=== PATIENT | female | born 1955 | race Two or more races ===

== ENCOUNTER 2016-05-10 18:12 | Emergency (ER) | payer OTHER, MEDICARE ==
[~2016-05-10] VITALS: Ht 152.4 cm; Wt 62.5 kg
[~2016-05-10 18:12] MED LIST: AMLO5TAB2 PO; AMOX1TAB64 PO; ATOR10TA9 PO; CALC0.254 PO; CARV12.52 PO; CARV12.543 PO; CHOL100015 PO; CLON0.1T PO; CYCL5TAB PO; FURO40TA6 PO; FURO80TA3 PO; FURO80TA77 PO; HYDR-3138 PO; HYDR-3240 PO; INDA2.5T PO; INSU100I28 SC; INSU100I29 SC; INSU100V13 SQ; L. R1CAP PO; LEVEMIR PO; LISI-167 PO; LISI-170 PO; LOSA100T6 PO; METF-86 PO; METO10TA2 PO; METO10TA82 PO; METO25TA35 PO; METO50TA82 PO; METO5TAB2 PO; NORT25CA3 PO; OMEP10CA4 PO; OMEP40CA6 PO; OXYC5CAP4 PO; OXYGEN; PIOG15TA9 PO; PROM25SU34 RC; SERT100T5 PO; SERT25TA3 PO; SERT50TA5 PO; SODI650T PO; SUCR1TAB PO; VANC250C2 PO; ZOLP10TA5 PO
[2016-05-10] MEDS ORDERED: SODIUM CHLORIDE FLUSH 10ML SYR IVF ONE (18:30)
[2016-05-10] MEDS ORDERED: LISINOPRIL 20 MG TABLET ONE (18:36)
[2016-05-10] MEDS ORDERED: LISINOPRIL 20 MG TABLET PO ONE (19:00)
[2016-05-10 19:12] LABS: HEMOGLOBIN 9.6 g/dL (11.7-16.4)
[2016-05-10 19:20] LABS: ASPARTATE AMINO TRANSFERASE 9 U/L (15-37); BLOOD UREA NITROGEN 47 mg/dL (7-18)
[2016-05-10] MEDS ORDERED: LIDOCAINE 1%, 20ML ONE (20:48)
[2016-05-10] MEDS ORDERED: SODIUM BICARBONATE 4.2%, 5ML ONE (20:48)
[2016-05-10 21:40] VITALS: BP 166/60
[2016-05-10] MEDS ORDERED: OXYcodone/APAP 5/325MG TABLET ONE (21:51)
[2016-05-10] MEDS ORDERED: OXYcodone/APAP 5/325MG TABLET PO ONE (22:00)
== END 2016-05-10 22:31 | disposition home or self-care (01) ==
LOC: ED 21:30
DX: I50.1 Left ventricular failure, unspecified (principal)
CPT/HCPCS: 36415; 71010; 71020; 80053; 85025; 93005; 99285; J3490

== ENCOUNTER 2016-07-24 11:09 | Emergency (ER) | payer OTHER, MEDICARE ==
[~2016-07-24] VITALS: Ht 152.4 cm; Wt 55.0 kg
[~2016-07-24 11:09] MED LIST changes: +ACET325T14 PO; +CALC667C PO; +GUAI5SYR PO; +HYDR-3341 PO; +INSU100I18 SQ-INSULIN; -L. R1CAP PO; +LACT1CAP61 PO; +OXYC5TAB3 PO; +SPIR25TA PO
[2016-07-24 11:11] VITALS: BP 146/72
[2016-07-24] MEDS ORDERED: BACITRACIN ZINC OINT 500U/GM, 0.9 GM ONE (11:43)
== END 2016-07-24 12:10 | disposition home or self-care (01) ==
LOC: ED 12:04
DX: Z76.0 Encounter for issue of repeat prescription (principal); G89.29 Other chronic pain; E11.22 Type 2 diabetes mellitus with diabetic chronic kidney disease; I12.0 Hypertensive chronic kidney disease with stage 5 chronic kidney disease or end stage renal disease; N18.6 End stage renal disease; J18.9 Pneumonia, unspecified organism; F32.9 Major depressive disorder, single episode, unspecified; Z99.2 Dependence on renal dialysis
CPT/HCPCS: 99283

== ENCOUNTER 2016-07-25 22:00 | Emergency (ER) | payer OTHER, MEDICARE ==
[2016-07-27 15:07] LABS: ASPARTATE AMINO TRANSFERASE 19 U/L (15-37); BLOOD UREA NITROGEN 51 mg/dL (7-18)
== END 2016-07-26 03:52 | disposition home or self-care (01) ==
LOC: ED 22:00
DX: R06.00 Dyspnea, unspecified (principal); D64.9 Anemia, unspecified; R09.02 Hypoxemia; I12.0 Hypertensive chronic kidney disease with stage 5 chronic kidney disease or end stage renal disease; E11.22 Type 2 diabetes mellitus with diabetic chronic kidney disease; N18.6 End stage renal disease; K21.9 Gastro-esophageal reflux disease without esophagitis; Z87.891 Personal history of nicotine dependence; Z88.6 Allergy status to analgesic agent
CPT/HCPCS: 36415; 71010; 80053; 83880; 85025; 93005; 99285

== ENCOUNTER 2016-08-01 19:34 | Emergency (ER) | payer OTHER, MEDICARE ==
[~2016-08-01] VITALS: Ht 152.4 cm; Wt 58.6 kg
[2016-08-01 20:24] LABS: ASPARTATE AMINO TRANSFERASE 10 U/L (15-37); BLOOD UREA NITROGEN 57 mg/dL (7-18)
[2016-08-01 22:39] VITALS: BP 156/60
== END 2016-08-01 22:53 | disposition home or self-care (01) ==
LOC: ED 22:52
DX: R06.00 Dyspnea, unspecified (principal); R06.02 Shortness of breath; N19 Unspecified kidney failure; K21.9 Gastro-esophageal reflux disease without esophagitis; E11.9 Type 2 diabetes mellitus without complications; I11.0 Hypertensive heart disease with heart failure; Z87.01 Personal history of pneumonia (recurrent); J96.90 Respiratory failure, unspecified, unspecified whether with hypoxia or hypercapnia; Z99.2 Dependence on renal dialysis; Z90.49 Acquired absence of other specified parts of digestive tract; Z90.710 Acquired absence of both cervix and uterus; Z87.891 Personal history of nicotine dependence; Z88.5 Allergy status to narcotic agent
CPT/HCPCS: 36415; 71010; 80053; 85025; 93005; 99285

== ENCOUNTER 2016-11-06 15:37 | Emergency (ER) | payer OTHER, MEDICARE ==
[~2016-11-06] VITALS: Ht 152.4 cm; Wt 63.5 kg
[~2016-11-06 15:37] MED LIST changes: -HYDR-3138 PO; +HYDR-3237 PO; +METF-162 PO; -METF-86 PO; +OXYC5CAP2 PO; -OXYC5CAP4 PO; +PIOG15TA22 PO; -PIOG15TA9 PO
[2016-11-06 16:26] VITALS: BP 148/49
[2016-11-06] MEDS ORDERED: ALPR0.25 PO (16:26)
[2016-11-06] MEDS ORDERED: LISI-170 PO (16:26)
[2016-11-06] MEDS ORDERED: ONDA4TAB7 PO (16:26)
[2016-11-06] MEDS ORDERED: INSU100I28 SQ (16:26)
== END 2016-11-06 17:24 | disposition home or self-care (01) ==
LOC: ED 17:19
DX: R06.00 Dyspnea, unspecified (principal); I13.2 Hypertensive heart and chronic kidney disease with heart failure and with stage 5 chronic kidney disease, or end stage renal disease; E11.22 Type 2 diabetes mellitus with diabetic chronic kidney disease; N18.6 End stage renal disease; I50.40 Unspecified combined systolic (congestive) and diastolic (congestive) heart failure; K21.9 Gastro-esophageal reflux disease without esophagitis; Z99.2 Dependence on renal dialysis; Z90.49 Acquired absence of other specified parts of digestive tract; Z90.710 Acquired absence of both cervix and uterus; Z87.891 Personal history of nicotine dependence
CPT/HCPCS: 71020; 93005; 99284

== ENCOUNTER 2016-12-13 16:14 | Emergency (ER) | payer OTHER, MEDICARE ==
[~2016-12-13] VITALS: Ht 152.4 cm; Wt 66.5 kg
[~2016-12-13 16:14] MED LIST changes: +ALPR0.25 PO; +INSU100I28 SQ; +ONDA4TAB7 PO
[2016-12-13] MEDS ORDERED: ONDANSETRON ODT 4 MG PO ONE (16:30)
[2016-12-13] MEDS ORDERED: ONDANSETRON ODT 4 MG ONE (16:36)
[2016-12-13 17:39] LABS: HEMATOCRIT 35.1 % (34.6-47.8); HEMOGLOBIN 11.8 g/dL (11.7-16.4); WHITE BLOOD COUNT 7.2 x10^3/uL (3.4-10)
[2016-12-13] MEDS ORDERED: ONDANSETRON 2MG/ML, 2ML ONE (17:41)
[2016-12-13] MEDS ORDERED: HYDROmorphone 1 MG/ML, 1ML ONE ×2 (17:41→17:44)
[2016-12-13 17:54] LABS: BLOOD UREA NITROGEN 37 mg/dL (7-18)
[2016-12-13 17:58] LABS: ASPARTATE AMINO TRANSFERASE 16 U/L (15-37)
[2016-12-13] MEDS ORDERED: SODIUM CHLORIDE FLUSH 10ML SYR IVF ONE (18:00)
[2016-12-13] MEDS ORDERED: HYDROmorphone 1 MG/ML, 1ML IVPush PRN (18:00)
[2016-12-13] MEDS ORDERED: ONDANSETRON 2MG/ML, 2ML IVPush ONE (18:00)
[2016-12-13 19:23] VITALS: BP 157/62
== END 2016-12-13 19:26 | disposition home or self-care (01) ==
LOC: ED 17:52
DX: S39.012A Strain of muscle, fascia and tendon of lower back, initial encounter (principal); I10 Essential (primary) hypertension; E11.9 Type 2 diabetes mellitus without complications; K21.9 Gastro-esophageal reflux disease without esophagitis; Z90.49 Acquired absence of other specified parts of digestive tract; Z88.6 Allergy status to analgesic agent; Z90.710 Acquired absence of both cervix and uterus; X58.XXXA Exposure to other specified factors, initial encounter; Y93.89 Activity, other specified; Y99.8 Other external cause status; Y92.89 Other specified places as the place of occurrence of the external cause
CPT/HCPCS: 36415; 72110; 74176; 80053; 83735; 85025; 96374; 96375; 99285; J1170; J2405; Q0162

== ENCOUNTER 2017-07-01 09:17 | Inpatient (IN) | payer OTHER, MEDICARE ==
[~2017-07-01] VITALS: Ht 152.4 cm; Wt 91.0 kg
[2017-07-01 09:52] LABS: BASOPHILS # (AUTO) 0.01 x10^3/uL (0-0.1); BASOPHILS % (AUTO) 0 % (0-1); EOSINOPHILS % (AUTO) 0 % (1-7); LYMPHOCYTES # (AUTO) 0.79 x10^3/uL (1-3.4); LYMPHOCYTES % (AUTO) 12 % (22-44); MD NO; MEAN CORPUSCULAR HEMOGLOBIN 30.9 pg (27.0-34.8); MEAN CORPUSCULAR HGB CONC 33.1 g/dL (32.4-35.8); MEAN CORPUSCULAR VOLUME 93.3 fL (80-100); MONOCYTES # (AUTO) 0.13 x10^3/uL (0.2-0.8); MONOCYTES % (AUTO) 2 % (2-9); NEUTROPHILS # (AUTO) 5.86 x10^3/uL (1.8-6.8); NEUTROPHILS % (AUTO) 86 % (42-75); PLATELET COUNT 260 x10^3/uL (130-400); RED BLOOD COUNT 4.14 x10^6/uL (3.82-5.3); RED CELL DISTRIBUTION WIDTH 14.3 % (9.6-15.2)
[2017-07-01 10:04] LABS: ALBUMIN 4.3 g/dL (3.4-5.0); ANION GAP 20 mmol/L (5-15); CHLORIDE 95 mmol/L (98-107)
[2017-07-01 10:08] LABS: ALANINE AMINOTRANSFERASE 18 U/L (12-78); ALKALINE PHOSPHATASE 115 U/L (45-117); BILIRUBIN,TOTAL 0.7 mg/dL (0.2-1.0); TOTAL PROTEIN 9.1 g/dL (6.4-8.2)
[2017-07-01] MEDS ORDERED: LORazepam 2 MG/ML, 1ML ONE (11:12)
[2017-07-01] MEDS ORDERED: LORazepam 2 MG/ML, 1ML IVPush ONE ×2 (11:30→15:00)
[2017-07-01] MEDS ORDERED: ONDANSETRON ODT 4 MG PO PRN (12:30)
[2017-07-01] MEDS: LISINOPRIL 20 MG TABLET PO SCH (12:30)
[2017-07-01] MEDS ORDERED: ONDANSETRON 2MG/ML, 2ML IVPush PRN (12:30)
[2017-07-01] MEDS: AMLODIPINE 5 MG TABLET PO SCH (12:30)
[2017-07-01] MEDS ORDERED: POLYETHYLENE GLYCOL 17 GM PACKET PO PRN (12:30)
[2017-07-01] MEDS: HEPARIN 5,000 UNITS/ML, 1ML SQ SCH ×2 (12:30→22:03)
[2017-07-01 12:40] LABS: FREE T4 (FREE THYROXINE) 0.99 ng/dL (0.76-1.46)
[2017-07-01 16:26] VITALS: BP 181/67
[2017-07-01] MEDS: CALCIUM ACETATE 667 MG CAPSULE PO SCH (17:00)
[2017-07-01] MEDS: CARVEDILOL 12.5 MG TABLET PO SCH (17:16)
[2017-07-01 18:29] VITALS: BP 201/82
[2017-07-01] MEDS ORDERED: ZIPRASIDONE 20 MG INJ IM ONE (20:00)
[2017-07-01 21:15] VITALS: BP 216/75
[2017-07-01] MEDS: LABETALOL 5MG/ML, 20ML IVPush PRN (22:03)
[2017-07-01 22:10] VITALS: BP 205/77
[2017-07-01] MEDS ORDERED: hydrALAzine 20 MG/ML, 1ML IV ONE (23:00)
[2017-07-02] VITALS (10 sets, daily range): BP systolic 138–218; BP diastolic 49–87
[2017-07-02] MEDS ORDERED: hydrALAzine 20 MG/ML, 1ML IV ONE
[2017-07-02] MEDS: HEPARIN 5,000 UNITS/ML, 1ML SQ SCH ×2 (05:26→16:21)
[2017-07-02] MEDS: CARVEDILOL 12.5 MG TABLET PO SCH ×2 (05:27→17:39)
[2017-07-02 05:30] LABS: BASOPHILS # (AUTO) 0.02 x10^3/uL (0-0.1); BASOPHILS % (AUTO) 0 % (0-1); EOSINOPHILS % (AUTO) 0 % (1-7); LYMPHOCYTES # (AUTO) 0.79 x10^3/uL (1-3.4); LYMPHOCYTES % (AUTO) 8 % (22-44); MD NO; MEAN CORPUSCULAR HEMOGLOBIN 31.2 pg (27.0-34.8); MEAN CORPUSCULAR HGB CONC 33.7 g/dL (32.4-35.8); MEAN CORPUSCULAR VOLUME 92.4 fL (80-100); MEAN PLATELET VOLUME 8.7 fL (7.4-10.4); MONOCYTES # (AUTO) 0.74 x10^3/uL (0.2-0.8); MONOCYTES % (AUTO) 7 % (2-9); NEUTROPHILS % (AUTO) 85 % (42-75); PLATELET COUNT 218 x10^3/uL (130-400); RED BLOOD COUNT 3.68 x10^6/uL (3.82-5.3)
[2017-07-02 05:35] LABS: ALBUMIN 3.9 g/dL (3.4-5.0); ANION GAP 17 mmol/L (5-15); CALCIUM 8.5 mg/dL (8.5-10.1); CHLORIDE 100 mmol/L (98-107)
[2017-07-02 05:48] LABS: ALANINE AMINOTRANSFERASE 15 U/L (12-78); ALKALINE PHOSPHATASE 85 U/L (45-117); BILIRUBIN,TOTAL 1.2 mg/dL (0.2-1.0); CREATININE 9.25 mg/dL (0.55-1.02); TOTAL PROTEIN 7.8 g/dL (6.4-8.2)
[2017-07-02] MEDS: hydrALAzine 20 MG/ML, 1ML IV SCH ×7 (07:00→21:54)
[2017-07-02] MEDS ORDERED: ZIPRASIDONE 20 MG INJ IM ONE ×2 (07:29→08:00)
[2017-07-02] MEDS: LABETALOL 5MG/ML, 20ML IVPush PRN (07:54)
[2017-07-02] MEDS: CALCIUM ACETATE 667 MG CAPSULE PO SCH ×3 (08:00→17:00)
[2017-07-02] MEDS: morphine SULFATE 10 MG/ML, 1ML IVPush ONE (08:00)
[2017-07-02] MEDS ORDERED: MORPHINE SULFATE 4 MG/ML, 1ML ONE ×3 (08:07→12:39)
[2017-07-02] MEDS: AMLODIPINE 5 MG TABLET PO SCH (09:00)
[2017-07-02] MEDS ORDERED: SERTRALINE 100MG TABLET PO SCH (09:00)
[2017-07-02] MEDS: SENNA/DOCUSATE TABLET PO SCH (09:00)
[2017-07-02] MEDS: LISINOPRIL 20 MG TABLET PO SCH (09:00)
[2017-07-02] MEDS ORDERED: HALOPERIDOL 5 MG/ML IM ONE (10:00)
[2017-07-02] MEDS ORDERED: HALOPERIDOL 5 MG/ML ONE (10:01)
[2017-07-02] MEDS ORDERED: MORPHINE SULFATE 4 MG/ML, 1ML IVPush ONE (13:00)
[2017-07-02] MEDS: MORPHINE SULFATE 4 MG/ML, 1ML IVPush PRN ×2 (16:21→21:22)
[2017-07-03] VITALS (8 sets, daily range): BP systolic 114–182; BP diastolic 63–75
[2017-07-03] MEDS: HEPARIN 5,000 UNITS/ML, 1ML SQ SCH ×3 (00:48→16:00)
[2017-07-03] MEDS: hydrALAzine 20 MG/ML, 1ML IV SCH ×6 (02:17→22:00)
[2017-07-03 05:34] LABS: BASOPHILS # (AUTO) 0.02 x10^3/uL (0-0.1); BASOPHILS % (AUTO) 0 % (0-1); EOSINOPHILS % (AUTO) 0 % (1-7); LYMPHOCYTES # (AUTO) 0.87 x10^3/uL (1-3.4); LYMPHOCYTES % (AUTO) 8 % (22-44); MD NO; MEAN CORPUSCULAR HEMOGLOBIN 31.4 pg (27.0-34.8); MEAN CORPUSCULAR HGB CONC 33.1 g/dL (32.4-35.8); MEAN CORPUSCULAR VOLUME 94.9 fL (80-100); MEAN PLATELET VOLUME 9.1 fL (7.4-10.4); MONOCYTES # (AUTO) 0.86 x10^3/uL (0.2-0.8); MONOCYTES % (AUTO) 8 % (2-9); NEUTROPHILS # (AUTO) 9.64 x10^3/uL (1.8-6.8); NEUTROPHILS % (AUTO) 85 % (42-75); PLATELET COUNT 238 x10^3/uL (130-400); RED BLOOD COUNT 3.89 x10^6/uL (3.82-5.3); RED CELL DISTRIBUTION WIDTH 14.4 % (9.6-15.2)
[2017-07-03 05:43] LABS: ALBUMIN 4.1 g/dL (3.4-5.0); ANION GAP 16 mmol/L (5-15); CALCIUM 8.9 mg/dL (8.5-10.1); CHLORIDE 100 mmol/L (98-107)
[2017-07-03 05:47] LABS: % IRON SATURATION 23 % (20-55); ALANINE AMINOTRANSFERASE 24 U/L (12-78); ALKALINE PHOSPHATASE 89 U/L (45-117); IRON LEVEL 52 mcg/dL (50-170); TOTAL IRON BINDING CAPACITY 230 mcg/dL (250-450); TOTAL PROTEIN 8.5 g/dL (6.4-8.2)
[2017-07-03] MEDS: CARVEDILOL 12.5 MG TABLET PO SCH ×2 (05:56→17:44)
[2017-07-03] MEDS: CALCIUM ACETATE 667 MG CAPSULE PO SCH ×3 (08:00→17:00)
[2017-07-03] MEDS: MORPHINE SULFATE 4 MG/ML, 1ML IVPush PRN ×2 (08:59→13:21)
[2017-07-03] MEDS: AMLODIPINE 5 MG TABLET PO SCH (09:00)
[2017-07-03] MEDS: SENNA/DOCUSATE TABLET PO SCH (09:00)
[2017-07-03] MEDS: LISINOPRIL 20 MG TABLET PO SCH (09:00)
[2017-07-04] VITALS (7 sets, daily range): BP systolic 110–164; BP diastolic 62–73
[2017-07-04] MEDS: HEPARIN 5,000 UNITS/ML, 1ML SQ SCH ×3 (00:29→19:00)
[2017-07-04] MEDS: hydrALAzine 20 MG/ML, 1ML IV SCH ×6 (02:00→22:00)
[2017-07-04] MEDS: CARVEDILOL 12.5 MG TABLET PO SCH ×2 (05:22→22:24)
[2017-07-04] MEDS: CALCIUM ACETATE 667 MG CAPSULE PO SCH ×3 (08:00→17:00)
[2017-07-04] MEDS: AMLODIPINE 5 MG TABLET PO SCH (08:55)
[2017-07-04] MEDS: LISINOPRIL 20 MG TABLET PO SCH (08:56)
[2017-07-04] MEDS: SENNA/DOCUSATE TABLET PO SCH (08:56)
[2017-07-04 11:56] LABS: BASOPHILS # (AUTO) 0.01 x10^3/uL (0-0.1); BASOPHILS % (AUTO) 0 % (0-1); EOSINOPHILS % (AUTO) 0 % (1-7); LYMPHOCYTES # (AUTO) 1.13 x10^3/uL (1-3.4); LYMPHOCYTES % (AUTO) 10 % (22-44); MD NO; MEAN CORPUSCULAR HEMOGLOBIN 30.2 pg (27.0-34.8); MEAN CORPUSCULAR HGB CONC 32.2 g/dL (32.4-35.8); MEAN CORPUSCULAR VOLUME 93.9 fL (80-100); MONOCYTES # (AUTO) 0.87 x10^3/uL (0.2-0.8); MONOCYTES % (AUTO) 8 % (2-9); NEUTROPHILS # (AUTO) 9.38 x10^3/uL (1.8-6.8); NEUTROPHILS % (AUTO) 82 % (42-75); PLATELET COUNT 198 x10^3/uL (130-400); RED BLOOD COUNT 3.96 x10^6/uL (3.82-5.3); RED CELL DISTRIBUTION WIDTH 14.1 % (9.6-15.2)
[2017-07-04 12:09] LABS: ALANINE AMINOTRANSFERASE 28 U/L (12-78); ANION GAP 13 mmol/L (5-15); CALCIUM 8.7 mg/dL (8.5-10.1); CHLORIDE 95 mmol/L (98-107)
[2017-07-04 12:12] LABS: ALKALINE PHOSPHATASE 97 U/L (45-117); BILIRUBIN,TOTAL 1.1 mg/dL (0.2-1.0); CREATININE 5.07 mg/dL (0.55-1.02); TOTAL PROTEIN 8.2 g/dL (6.4-8.2)
[2017-07-04] MEDS: INSULIN LISPRO 100 UNITS/ML, PEN SQ-INSULIN SCH (21:00)
[2017-07-05 01:00] VITALS: BP 118/72
[2017-07-05] MEDS: hydrALAzine 20 MG/ML, 1ML IV SCH ×6 (02:00→20:18)
[2017-07-05] MEDS: HEPARIN 5,000 UNITS/ML, 1ML SQ SCH ×3 (02:50→20:27)
[2017-07-05 06:18] VITALS: BP 147/75
[2017-07-05] MEDS: CARVEDILOL 12.5 MG TABLET PO SCH ×2 (06:25→17:13)
[2017-07-05] MEDS: INSULIN LISPRO 100 UNITS/ML, PEN SQ-INSULIN SCH ×4 (07:00→20:27)
[2017-07-05 07:47] LABS: BASOPHILS # (AUTO) 0.03 x10^3/uL (0-0.1); BASOPHILS % (AUTO) 0 % (0-1); EOSINOPHILS # (AUTO) 0.07 x10^3/uL (0-0.4); EOSINOPHILS % (AUTO) 1 % (1-7); LYMPHOCYTES # (AUTO) 1.28 x10^3/uL (1-3.4); LYMPHOCYTES % (AUTO) 13 % (22-44); MD NO; MEAN CORPUSCULAR HEMOGLOBIN 31.3 pg (27.0-34.8); MEAN CORPUSCULAR HGB CONC 33.4 g/dL (32.4-35.8); MEAN CORPUSCULAR VOLUME 93.6 fL (80-100); MEAN PLATELET VOLUME 9.2 fL (7.4-10.4); MONOCYTES # (AUTO) 0.95 x10^3/uL (0.2-0.8); MONOCYTES % (AUTO) 10 % (2-9); NEUTROPHILS # (AUTO) 7.44 x10^3/uL (1.8-6.8); NEUTROPHILS % (AUTO) 76 % (42-75); PLATELET COUNT 168 x10^3/uL (130-400); RED BLOOD COUNT 3.51 x10^6/uL (3.82-5.3); RED CELL DISTRIBUTION WIDTH 13.9 % (9.6-15.2)
[2017-07-05 08:00] LABS: ALANINE AMINOTRANSFERASE 25 U/L (12-78); ALBUMIN 3.3 g/dL (3.4-5.0); ANION GAP 9 mmol/L (5-15); CALCIUM 8.5 mg/dL (8.5-10.1); CHLORIDE 97 mmol/L (98-107); CREATININE 3.64 mg/dL (0.55-1.02)
[2017-07-05 08:02] LABS: ALKALINE PHOSPHATASE 111 U/L (45-117); BILIRUBIN,TOTAL 0.7 mg/dL (0.2-1.0); TOTAL PROTEIN 7.1 g/dL (6.4-8.2)
[2017-07-05 08:49] VITALS: BP 143/72
[2017-07-05] MEDS: SENNA/DOCUSATE TABLET PO SCH (09:00)
[2017-07-05] MEDS: LISINOPRIL 20 MG TABLET PO SCH (09:45)
[2017-07-05] MEDS: AMLODIPINE 5 MG TABLET PO SCH (09:45)
[2017-07-05] MEDS: CALCIUM ACETATE 667 MG CAPSULE PO SCH ×3 (09:46→17:13)
[2017-07-05 12:00] VITALS: BP 103/48
[2017-07-05 13:20] VITALS: BP 108/56
[2017-07-05 20:03] VITALS: BP 131/67
[2017-07-06 01:14] VITALS: BP 130/66
[2017-07-06] MEDS: hydrALAzine 20 MG/ML, 1ML IV SCH ×7 (02:00→22:00)
[2017-07-06] MEDS: HEPARIN 5,000 UNITS/ML, 1ML SQ SCH ×3 (04:00→20:46)
[2017-07-06] MEDS: CARVEDILOL 12.5 MG TABLET PO SCH ×2 (05:20→17:25)
[2017-07-06 05:46] LABS: ALBUMIN 3.2 g/dL (3.4-5.0); ANION GAP 11 mmol/L (5-15); CHLORIDE 95 mmol/L (98-107); CREATININE 6.02 mg/dL (0.55-1.02)
[2017-07-06 08:31] VITALS: BP 115/64
[2017-07-06] MEDS: SENNA/DOCUSATE TABLET PO SCH (08:32)
[2017-07-06] MEDS: CALCIUM ACETATE 667 MG CAPSULE PO SCH ×3 (08:33→17:23)
[2017-07-06] MEDS: INSULIN LISPRO 100 UNITS/ML, PEN SQ-INSULIN SCH ×4 (08:34→20:52)
[2017-07-06] MEDS: LISINOPRIL 20 MG TABLET PO SCH (08:40)
[2017-07-06] MEDS: AMLODIPINE 5 MG TABLET PO SCH (08:40)
[2017-07-06 14:00] VITALS: BP 152/69
[2017-07-06 17:29] VITALS: BP 122/65
[2017-07-06 20:00] VITALS: BP 144/85
[2017-07-06 22:07] VITALS: BP 121/64
[2017-07-07] VITALS (8 sets, daily range): BP systolic 110–165; BP diastolic 61–77
[2017-07-07] MEDS: hydrALAzine 20 MG/ML, 1ML IV SCH ×6 (02:00→21:34)
[2017-07-07] MEDS: HEPARIN 5,000 UNITS/ML, 1ML SQ SCH ×3 (03:57→21:32)
[2017-07-07] MEDS: CARVEDILOL 12.5 MG TABLET PO SCH ×2 (05:37→17:33)
[2017-07-07] MEDS: INSULIN LISPRO 100 UNITS/ML, PEN SQ-INSULIN SCH ×4 (07:00→21:32)
[2017-07-07] MEDS: CALCIUM ACETATE 667 MG CAPSULE PO SCH ×3 (08:11→17:32)
[2017-07-07] MEDS: LISINOPRIL 20 MG TABLET PO SCH (08:11)
[2017-07-07] MEDS: SENNA/DOCUSATE TABLET PO SCH (08:12)
[2017-07-07] MEDS: AMLODIPINE 5 MG TABLET PO SCH (08:12)
[2017-07-07] MEDS ORDERED: CALCITRIOL 0.25 MCG CAPSULE PO SCH (09:00)
[2017-07-08 00:55] VITALS: BP 137/60
[2017-07-08] MEDS: hydrALAzine 20 MG/ML, 1ML IV SCH ×3 (01:52→12:44)
[2017-07-08] MEDS: HEPARIN 5,000 UNITS/ML, 1ML SQ SCH ×2 (05:18→13:30)
[2017-07-08] MEDS: CARVEDILOL 12.5 MG TABLET PO SCH (05:19)
[2017-07-08 05:20] VITALS: BP 153/53
[2017-07-08] MEDS ORDERED: CALC0.25 PO (06:25)
[2017-07-08] MEDS: CALCIUM ACETATE 667 MG CAPSULE PO SCH ×2 (07:54→12:45)
[2017-07-08] MEDS: INSULIN LISPRO 100 UNITS/ML, PEN SQ-INSULIN SCH ×2 (07:54→11:00)
[2017-07-08] MEDS: SENNA/DOCUSATE TABLET PO SCH (09:00)
[2017-07-08] MEDS ORDERED: ERGOCALCIFEROL 50,000 UNIT CAPSULE PO SCH (10:30)
[2017-07-08 12:38] VITALS: BP 146/69
[2017-07-08] MEDS: AMLODIPINE 5 MG TABLET PO SCH (12:45)
[2017-07-08] MEDS: LISINOPRIL 20 MG TABLET PO SCH (12:45)
== END 2017-07-08 13:30 | DRG 70 ==
LOC: ED 10:11 → EDIP 10:44 → 3NE 11:38 → 4EST 20:45
PROVIDERS: ADMIT Hospitalist; ATTEND Hospitalist
PROC: 5A1D70Z Performance of Urinary Filtration, Intermittent, Less than 6 Hours Per Day (ICD-10-PCS; principal; 2017-07-01)
PROC: 5A1D70Z Performance of Urinary Filtration, Intermittent, Less than 6 Hours Per Day (ICD-10-PCS; 2017-07-02)
PROC: 5A1D70Z Performance of Urinary Filtration, Intermittent, Less than 6 Hours Per Day (ICD-10-PCS; 2017-07-03)
PROC: 5A1D70Z Performance of Urinary Filtration, Intermittent, Less than 6 Hours Per Day (ICD-10-PCS; 2017-07-04)
PROC: 5A1D70Z Performance of Urinary Filtration, Intermittent, Less than 6 Hours Per Day (ICD-10-PCS; 2017-07-06)
PROC: 5A1D70Z Performance of Urinary Filtration, Intermittent, Less than 6 Hours Per Day (ICD-10-PCS; 2017-07-08)
DX: G93.41 Metabolic encephalopathy (principal); J18.9 Pneumonia, unspecified organism; I13.2 Hypertensive heart and chronic kidney disease with heart failure and with stage 5 chronic kidney disease, or end stage renal disease; Z99.11 Dependence on respirator [ventilator] status; J96.10 Chronic respiratory failure, unspecified whether with hypoxia or hypercapnia; E46 Unspecified protein-calorie malnutrition; N18.6 End stage renal disease; E87.1 Hypo-osmolality and hyponatremia; I50.32 Chronic diastolic (congestive) heart failure; G93.49 Other encephalopathy; D63.1 Anemia in chronic kidney disease; E11.22 Type 2 diabetes mellitus with diabetic chronic kidney disease; E11.43 Type 2 diabetes mellitus with diabetic autonomic (poly)neuropathy; E55.9 Vitamin D deficiency, unspecified; F32.9 Major depressive disorder, single episode, unspecified; I34.0 Nonrheumatic mitral (valve) insufficiency; K21.9 Gastro-esophageal reflux disease without esophagitis; K31.84 Gastroparesis; N20.0 Calculus of kidney; N25.0 Renal osteodystrophy; Z78.1 Physical restraint status; Z82.49 Family history of ischemic heart disease and other diseases of the circulatory system; Z90.710 Acquired absence of both cervix and uterus; Z83.3 Family history of diabetes mellitus; Z99.2 Dependence on renal dialysis
CPT/HCPCS: 36415; 70450; 71045; 74176; 80048; 80053; 80307; 82040; 82140; 82306; 82728; 82962; 83540; 83550; 83690; 83735; 83970; 84100; 84439; 84443; 85025; 86704; 86706; 87040; 87340; 93005; 96372; 96374; 96376; J1644; J3486; J0360; J1630; J1815; J2060; J2270

== ENCOUNTER 2017-07-30 15:49 | Inpatient (IN) | payer OTHER, MEDICARE ==
[~2017-07-30] VITALS: Ht 152.4 cm; Wt 71.3 kg
[~2017-07-30 15:49] MED LIST changes: +CALC0.25 PO
[2017-07-30] MEDS ORDERED: SODIUM CHLORIDE FLUSH 10ML SYR IVF ONE (16:00)
[2017-07-30 16:38] LABS: BASOPHILS # (AUTO) 0.01 x10^3/uL (0-0.1); BASOPHILS % (AUTO) 0 % (0-1); EOSINOPHILS % (AUTO) 0 % (1-7); LYMPHOCYTES # (AUTO) 0.59 x10^3/uL (1-3.4); LYMPHOCYTES % (AUTO) 9 % (22-44); MD NO; MEAN CORPUSCULAR HEMOGLOBIN 30.8 pg (27.0-34.8); MEAN CORPUSCULAR HGB CONC 32.2 g/dL (32.4-35.8); MEAN CORPUSCULAR VOLUME 95.7 fL (80-100); MEAN PLATELET VOLUME 8.8 fL (7.4-10.4); MONOCYTES # (AUTO) 0.29 x10^3/uL (0.2-0.8); MONOCYTES % (AUTO) 5 % (2-9); NEUTROPHILS # (AUTO) 5.51 x10^3/uL (1.8-6.8); NEUTROPHILS % (AUTO) 86 % (42-75); PLATELET COUNT 250 x10^3/uL (130-400); RED BLOOD COUNT 4.04 x10^6/uL (3.82-5.3); RED CELL DISTRIBUTION WIDTH 15.6 % (9.6-15.2)
[2017-07-30 16:47] LABS: INTERNATIONAL NORMALIZED RATIO 0.99 (0.93-1.1); PROTHROMBIN TIME 10.2 Seconds (9.6-11.5)
[2017-07-30 16:50] LABS: ALBUMIN 3.8 g/dL (3.4-5.0); ANION GAP 11 mmol/L (5-15); CALCIUM 8.5 mg/dL (8.5-10.1); CHLORIDE 96 mmol/L (98-107); SALICYLATE LEVEL < 1.7 mg/dL (2.8-20.0)
[2017-07-30 16:55] LABS: ACETAMINOPHEN < 2 mcg/mL (10-30); ALANINE AMINOTRANSFERASE 23 U/L (12-78); ALKALINE PHOSPHATASE 136 U/L (45-117); BILIRUBIN,TOTAL 1.1 mg/dL (0.2-1.0); CREATININE 6.87 mg/dL (0.55-1.02); TOTAL PROTEIN 8.1 g/dL (6.4-8.2); TROPONIN I 0.017 ng/mL (0.000-0.045)
[2017-07-30 17:02] LABS: MICROSCOPIC INDICATED
[2017-07-30 17:08] LABS: AMPHETAMINE SCREEN, URINE Negative (Negative); BARBITURATE SCREEN, URINE Negative (Negative); BENZODIAZEPINE SCREEN, URINE Negative (Negative); CANNABINOID SCREEN, URINE Negative (Negative); COCAINE SCREEN, URINE Negative (Negative); METHADONE SCREEN, URINE Negative (Negative); OPIATE SCREEN, URINE Negative (Negative)
[2017-07-30 17:09] LABS: CULTURE INDICATED? NO
[2017-07-30] MEDS ORDERED: LORazepam 2 MG/ML, 1ML ONE (17:44)
[2017-07-30] MEDS ORDERED: MIDAZOLAM 1 MG/ML, 2ML ONE (17:57)
[2017-07-30] MEDS ORDERED: MIDAZOLAM 1 MG/ML, 2ML IVPush ONE (18:00)
[2017-07-30] MEDS ORDERED: POLYETHYLENE GLYCOL 17 GM PACKET PO PRN (18:30)
[2017-07-30] MEDS ORDERED: GUAIFENESIN/DM 200-20MG, 10ML UDC PO PRN (18:30)
[2017-07-30] MEDS ORDERED: LABETALOL 5MG/ML, 20ML IVPush PRN ×2 (18:30)
[2017-07-30] MEDS ORDERED: ONDANSETRON 2MG/ML, 2ML IVPush PRN (18:30)
[2017-07-30] MEDS ORDERED: METO10TA2 PO (18:48)
[2017-07-30] MEDS ORDERED: HYDR-3342 PO (18:48)
[2017-07-30] MEDS ORDERED: BACL20TA PO (18:48)
[2017-07-30 18:49] LABS: FREE T4 (FREE THYROXINE) 1.17 ng/dL (0.76-1.46); THYROID STIMULATING HORMONE 1.59 mIU/L (0.358-3.740)
[2017-07-30] MEDS ORDERED: LORazepam 2 MG/ML, 1ML IVPush ONE (19:30)
[2017-07-30 19:54] VITALS: BP 165/77
[2017-07-30] MEDS: HEPARIN 5,000 UNITS/ML, 1ML SQ SCH (20:57)
[2017-07-30] MEDS: FAMOTIDINE 20 MG/2 ML IVPush SCH (20:57)
[2017-07-30] MEDS: INSULIN LISPRO 100 UNITS/ML, PEN SQ-INSULIN SCH (20:57)
[2017-07-31 00:33] VITALS: BP 159/86
[2017-07-31] MEDS: morphine SULFATE 10 MG/ML, 1ML IVPush PRN ×4 (01:43→17:09)
[2017-07-31] MEDS ORDERED: LORazepam 2 MG/ML, 1ML IVPush ONE (02:30)
[2017-07-31] MEDS: HEPARIN 5,000 UNITS/ML, 1ML SQ SCH ×3 (05:08→22:13)
[2017-07-31 05:32] LABS: BASOPHILS # (AUTO) 0.02 x10^3/uL (0-0.1); BASOPHILS % (AUTO) 0 % (0-1); EOSINOPHILS % (AUTO) 0 % (1-7); LYMPHOCYTES # (AUTO) 1.04 x10^3/uL (1-3.4); LYMPHOCYTES % (AUTO) 11 % (22-44); MD NO; MEAN CORPUSCULAR HEMOGLOBIN 32.1 pg (27.0-34.8); MEAN CORPUSCULAR HGB CONC 33.3 g/dL (32.4-35.8); MEAN CORPUSCULAR VOLUME 96.4 fL (80-100); MEAN PLATELET VOLUME 8.6 fL (7.4-10.4); MONOCYTES % (AUTO) 5 % (2-9); NEUTROPHILS # (AUTO) 7.56 x10^3/uL (1.8-6.8); NEUTROPHILS % (AUTO) 83 % (42-75); PLATELET COUNT 237 x10^3/uL (130-400); RED BLOOD COUNT 3.78 x10^6/uL (3.82-5.3); RED CELL DISTRIBUTION WIDTH 15.6 % (9.6-15.2)
[2017-07-31 05:40] LABS: CHLORIDE 101 mmol/L (98-107)
[2017-07-31 05:48] LABS: ALANINE AMINOTRANSFERASE 20 U/L (12-78); ALBUMIN 3.6 g/dL (3.4-5.0); ALKALINE PHOSPHATASE 108 U/L (45-117); ANION GAP 10 mmol/L (5-15); BILIRUBIN,TOTAL 0.6 mg/dL (0.2-1.0); CALCIUM 9.2 mg/dL (8.5-10.1); CREATININE 4.68 mg/dL (0.55-1.02); TOTAL PROTEIN 7.8 g/dL (6.4-8.2)
[2017-07-31] MEDS: INSULIN LISPRO 100 UNITS/ML, PEN SQ-INSULIN SCH ×4 (07:00→21:00)
[2017-07-31 07:28] VITALS: BP 143/99
[2017-07-31] MEDS: CARVEDILOL 12.5 MG TABLET PO SCH ×2 (08:00→16:57)
[2017-07-31] MEDS: CALCIUM ACETATE 667 MG CAPSULE PO SCH ×3 (08:00→16:57)
[2017-07-31] MEDS: SENNA/DOCUSATE TABLET PO SCH (09:00)
[2017-07-31] MEDS: FAMOTIDINE 20 MG/2 ML IVPush SCH (09:00)
[2017-07-31] MEDS: AMLODIPINE 5 MG TABLET PO SCH (09:00)
[2017-07-31] MEDS ORDERED: SERTRALINE 100MG TABLET PO SCH (09:00)
[2017-07-31] MEDS: CALCITRIOL 0.25 MCG CAPSULE PO SCH (09:00)
[2017-07-31] MEDS ORDERED: LISINOPRIL 20 MG TABLET PO SCH (09:00)
[2017-07-31 13:15] VITALS: BP 170/77
[2017-07-31] MEDS: HALOPERIDOL 5 MG/ML IM PRN ×2 (13:46→23:19)
[2017-07-31] MEDS ORDERED: ZIPRASIDONE 20 MG INJ IM ONE (18:30)
[2017-07-31 19:07] VITALS: BP 131/59
[2017-07-31] MEDS: LOSARTAN 25MG TABLET PO SCH (21:00)
[2017-08-01 02:21] VITALS: BP 147/67
[2017-08-01] MEDS ORDERED: ZIPRASIDONE 20 MG INJ IM ONE (04:30)
[2017-08-01 05:25] LABS: BASOPHILS # (AUTO) 0.02 x10^3/uL (0-0.1); BASOPHILS % (AUTO) 0 % (0-1); EOSINOPHILS % (AUTO) 0 % (1-7); LYMPHOCYTES # (AUTO) 0.71 x10^3/uL (1-3.4); LYMPHOCYTES % (AUTO) 8 % (22-44); MD NO; MEAN CORPUSCULAR HEMOGLOBIN 31.8 pg (27.0-34.8); MEAN CORPUSCULAR VOLUME 96.2 fL (80-100); MEAN PLATELET VOLUME 8.2 fL (7.4-10.4); MONOCYTES # (AUTO) 0.69 x10^3/uL (0.2-0.8); MONOCYTES % (AUTO) 8 % (2-9); NEUTROPHILS # (AUTO) 7.77 x10^3/uL (1.8-6.8); NEUTROPHILS % (AUTO) 85 % (42-75); PLATELET COUNT 228 x10^3/uL (130-400); RED BLOOD COUNT 3.88 x10^6/uL (3.82-5.3); RED CELL DISTRIBUTION WIDTH 15.4 % (9.6-15.2)
[2017-08-01 05:32] LABS: ALBUMIN 3.6 g/dL (3.4-5.0); ANION GAP 13 mmol/L (5-15); CALCIUM 8.8 mg/dL (8.5-10.1); CHLORIDE 104 mmol/L (98-107)
[2017-08-01 05:36] LABS: ALANINE AMINOTRANSFERASE 23 U/L (12-78); ALKALINE PHOSPHATASE 97 U/L (45-117); BILIRUBIN,TOTAL 0.9 mg/dL (0.2-1.0); CREATININE 4.96 mg/dL (0.55-1.02); TOTAL PROTEIN 7.8 g/dL (6.4-8.2)
[2017-08-01] MEDS: CARVEDILOL 12.5 MG TABLET PO SCH ×2 (06:00→17:35)
[2017-08-01] MEDS: HEPARIN 5,000 UNITS/ML, 1ML SQ SCH ×3 (06:26→21:35)
[2017-08-01] MEDS: INSULIN LISPRO 100 UNITS/ML, PEN SQ-INSULIN SCH ×4 (07:00→21:00)
[2017-08-01 07:46] VITALS: BP 143/64
[2017-08-01] MEDS: CALCIUM ACETATE 667 MG CAPSULE PO SCH ×3 (08:00→17:00)
[2017-08-01] MEDS: SENNA/DOCUSATE TABLET PO SCH (08:40)
[2017-08-01] MEDS: AMLODIPINE 5 MG TABLET PO SCH (08:40)
[2017-08-01] MEDS ORDERED: SERTRALINE 50MG TABLET PO SCH (09:00)
[2017-08-01] MEDS: HALOPERIDOL 5 MG/ML IM PRN ×2 (09:07→22:23)
[2017-08-01 13:46] VITALS: BP 135/60
[2017-08-01 19:00] VITALS: BP 157/72
[2017-08-01] MEDS: LOSARTAN 25MG TABLET PO SCH (21:00)
[2017-08-02 02:05] VITALS: BP 97/60
[2017-08-02] MEDS: morphine SULFATE 10 MG/ML, 1ML IVPush PRN (03:19)
[2017-08-02 04:34] LABS: BASOPHILS # (AUTO) 0.03 x10^3/uL (0-0.1); BASOPHILS % (AUTO) 0 % (0-1); EOSINOPHILS % (AUTO) 0 % (1-7); LYMPHOCYTES # (AUTO) 1.47 x10^3/uL (1-3.4); LYMPHOCYTES % (AUTO) 16 % (22-44); MD NO; MEAN CORPUSCULAR HEMOGLOBIN 31.8 pg (27.0-34.8); MEAN CORPUSCULAR HGB CONC 33.2 g/dL (32.4-35.8); MEAN CORPUSCULAR VOLUME 95.5 fL (80-100); MEAN PLATELET VOLUME 8.4 fL (7.4-10.4); MONOCYTES # (AUTO) 0.87 x10^3/uL (0.2-0.8); MONOCYTES % (AUTO) 10 % (2-9); NEUTROPHILS # (AUTO) 6.64 x10^3/uL (1.8-6.8); NEUTROPHILS % (AUTO) 74 % (42-75); PLATELET COUNT 240 x10^3/uL (130-400); RED BLOOD COUNT 4.15 x10^6/uL (3.82-5.3)
[2017-08-02 04:43] LABS: ALBUMIN 3.8 g/dL (3.4-5.0); ANION GAP 12 mmol/L (5-15); CALCIUM 9.3 mg/dL (8.5-10.1); CHLORIDE 96 mmol/L (98-107)
[2017-08-02 04:46] LABS: ALANINE AMINOTRANSFERASE 25 U/L (12-78); ALKALINE PHOSPHATASE 101 U/L (45-117); CREATININE 4.54 mg/dL (0.55-1.02); TOTAL PROTEIN 8.3 g/dL (6.4-8.2)
[2017-08-02] MEDS: CARVEDILOL 12.5 MG TABLET PO SCH ×2 (05:22→17:20)
[2017-08-02] MEDS: HEPARIN 5,000 UNITS/ML, 1ML SQ SCH ×3 (05:22→21:44)
[2017-08-02] MEDS: INSULIN LISPRO 100 UNITS/ML, PEN SQ-INSULIN SCH ×4 (07:00→20:48)
[2017-08-02 08:25] VITALS: BP 149/71
[2017-08-02] MEDS: ONDANSETRON 4 MG TABLET PO PRN (08:41)
[2017-08-02] MEDS: AMLODIPINE 5 MG TABLET PO SCH (08:41)
[2017-08-02] MEDS: CALCIUM ACETATE 667 MG CAPSULE PO SCH ×3 (08:41→17:20)
[2017-08-02] MEDS: CALCITRIOL 0.25 MCG CAPSULE PO SCH (08:41)
[2017-08-02] MEDS: SENNA/DOCUSATE TABLET PO SCH (08:41)
[2017-08-02] MEDS: HALOPERIDOL 5 MG/ML IM PRN (14:17)
[2017-08-02 19:05] VITALS: BP 101/57
[2017-08-02] MEDS: LOSARTAN 25MG TABLET PO SCH (20:47)
[2017-08-03] VITALS (7 sets, daily range): BP systolic 83–122; BP diastolic 51–78
[2017-08-03] MEDS: CARVEDILOL 12.5 MG TABLET PO SCH ×2 (05:34→18:17)
[2017-08-03] MEDS: HEPARIN 5,000 UNITS/ML, 1ML SQ SCH ×3 (05:34→23:43)
[2017-08-03 05:46] LABS: BASOPHILS # (AUTO) 0.03 x10^3/uL (0-0.1); BASOPHILS % (AUTO) 0 % (0-1); EOSINOPHILS % (AUTO) 0 % (1-7); LYMPHOCYTES # (AUTO) 1.54 x10^3/uL (1-3.4); LYMPHOCYTES % (AUTO) 17 % (22-44); MD NO; MEAN CORPUSCULAR HEMOGLOBIN 32.1 pg (27.0-34.8); MEAN CORPUSCULAR HGB CONC 33.5 g/dL (32.4-35.8); MEAN CORPUSCULAR VOLUME 95.6 fL (80-100); MEAN PLATELET VOLUME 8.8 fL (7.4-10.4); MONOCYTES # (AUTO) 0.79 x10^3/uL (0.2-0.8); MONOCYTES % (AUTO) 9 % (2-9); NEUTROPHILS # (AUTO) 6.62 x10^3/uL (1.8-6.8); NEUTROPHILS % (AUTO) 74 % (42-75); PLATELET COUNT 219 x10^3/uL (130-400); RED BLOOD COUNT 3.78 x10^6/uL (3.82-5.3); RED CELL DISTRIBUTION WIDTH 15.3 % (9.6-15.2)
[2017-08-03 05:58] LABS: ALBUMIN 3.4 g/dL (3.4-5.0); ANION GAP 15 mmol/L (5-15); CALCIUM 8.9 mg/dL (8.5-10.1); CHLORIDE 93 mmol/L (98-107)
[2017-08-03 06:03] LABS: ALANINE AMINOTRANSFERASE 20 U/L (12-78); ALKALINE PHOSPHATASE 103 U/L (45-117); BILIRUBIN,TOTAL 0.6 mg/dL (0.2-1.0); CREATININE 7.65 mg/dL (0.55-1.02); TOTAL PROTEIN 7.4 g/dL (6.4-8.2)
[2017-08-03] MEDS: INSULIN LISPRO 100 UNITS/ML, PEN SQ-INSULIN SCH ×4 (07:00→20:47)
[2017-08-03] MEDS: SENNA/DOCUSATE TABLET PO SCH (08:30)
[2017-08-03] MEDS: CALCIUM ACETATE 667 MG CAPSULE PO SCH ×3 (08:30→17:36)
[2017-08-03] MEDS: AMLODIPINE 5 MG TABLET PO SCH (09:00)
[2017-08-03] MEDS: LOSARTAN 25MG TABLET PO SCH (20:49)
[2017-08-04 00:34] VITALS: BP 106/63
[2017-08-04 05:42] LABS: BASOPHILS # (AUTO) 0.04 x10^3/uL (0-0.1); BASOPHILS % (AUTO) 0 % (0-1); EOSINOPHILS # (AUTO) 0.04 x10^3/uL (0-0.4); EOSINOPHILS % (AUTO) 0 % (1-7); LYMPHOCYTES # (AUTO) 1.93 x10^3/uL (1-3.4); LYMPHOCYTES % (AUTO) 20 % (22-44); MD NO; MEAN CORPUSCULAR HEMOGLOBIN 32.1 pg (27.0-34.8); MEAN CORPUSCULAR HGB CONC 33.3 g/dL (32.4-35.8); MEAN CORPUSCULAR VOLUME 96.3 fL (80-100); MEAN PLATELET VOLUME 9.2 fL (7.4-10.4); MONOCYTES # (AUTO) 0.88 x10^3/uL (0.2-0.8); MONOCYTES % (AUTO) 9 % (2-9); NEUTROPHILS % (AUTO) 71 % (42-75); PLATELET COUNT 218 x10^3/uL (130-400); RED CELL DISTRIBUTION WIDTH 14.9 % (9.6-15.2)
[2017-08-04 05:46] LABS: CHLORIDE 93 mmol/L (98-107)
[2017-08-04 06:02] LABS: ALANINE AMINOTRANSFERASE 22 U/L (12-78); ALBUMIN 3.2 g/dL (3.4-5.0); ALKALINE PHOSPHATASE 140 U/L (45-117); ANION GAP 12 mmol/L (5-15); BILIRUBIN,TOTAL 0.4 mg/dL (0.2-1.0); CALCIUM 8.9 mg/dL (8.5-10.1); CREATININE 5.39 mg/dL (0.55-1.02); TOTAL PROTEIN 7.2 g/dL (6.4-8.2)
[2017-08-04] MEDS: CARVEDILOL 12.5 MG TABLET PO SCH ×2 (06:17→18:17)
[2017-08-04 08:01] VITALS: BP 123/69
[2017-08-04] MEDS: CALCITRIOL 0.25 MCG CAPSULE PO SCH (08:38)
[2017-08-04] MEDS: CALCIUM ACETATE 667 MG CAPSULE PO SCH ×3 (08:38→18:17)
[2017-08-04] MEDS: AMLODIPINE 5 MG TABLET PO SCH (08:38)
[2017-08-04] MEDS: HEPARIN 5,000 UNITS/ML, 1ML SQ SCH ×2 (08:38→16:23)
[2017-08-04] MEDS: SENNA/DOCUSATE TABLET PO SCH (08:39)
[2017-08-04] MEDS: INSULIN LISPRO 100 UNITS/ML, PEN SQ-INSULIN SCH ×4 (08:39→20:17)
[2017-08-04 14:05] VITALS: BP 97/57
[2017-08-04 15:30] VITALS: BP 116/64
[2017-08-04 19:18] VITALS: BP 111/68
[2017-08-04] MEDS: LOSARTAN 25MG TABLET PO SCH (20:18)
[2017-08-05] MEDS: HEPARIN 5,000 UNITS/ML, 1ML SQ SCH ×3 (00:01→17:09)
[2017-08-05 00:58] VITALS: BP 123/65
[2017-08-05] MEDS: CARVEDILOL 12.5 MG TABLET PO SCH ×2 (05:45→17:10)
[2017-08-05 05:46] LABS: BASOPHILS # (AUTO) 0.04 x10^3/uL (0-0.1); BASOPHILS % (AUTO) 0 % (0-1); EOSINOPHILS # (AUTO) 0.14 x10^3/uL (0-0.4); EOSINOPHILS % (AUTO) 2 % (1-7); LYMPHOCYTES # (AUTO) 2.11 x10^3/uL (1-3.4); LYMPHOCYTES % (AUTO) 23 % (22-44); MD NO; MEAN CORPUSCULAR HEMOGLOBIN 32.2 pg (27.0-34.8); MEAN CORPUSCULAR HGB CONC 33.7 g/dL (32.4-35.8); MEAN CORPUSCULAR VOLUME 95.7 fL (80-100); MEAN PLATELET VOLUME 9.4 fL (7.4-10.4); MONOCYTES # (AUTO) 0.83 x10^3/uL (0.2-0.8); MONOCYTES % (AUTO) 9 % (2-9); NEUTROPHILS # (AUTO) 6.29 x10^3/uL (1.8-6.8); NEUTROPHILS % (AUTO) 67 % (42-75); PLATELET COUNT 195 x10^3/uL (130-400); RED BLOOD COUNT 3.52 x10^6/uL (3.82-5.3); RED CELL DISTRIBUTION WIDTH 14.9 % (9.6-15.2)
[2017-08-05 05:56] LABS: CHLORIDE 88 mmol/L (98-107)
[2017-08-05 06:22] LABS: ALANINE AMINOTRANSFERASE 19 U/L (12-78); ALKALINE PHOSPHATASE 135 U/L (45-117); ANION GAP 16 mmol/L (5-15); BILIRUBIN,TOTAL 0.7 mg/dL (0.2-1.0); CALCIUM 8.2 mg/dL (8.5-10.1); CREATININE 7.46 mg/dL (0.55-1.02); TOTAL PROTEIN 6.5 g/dL (6.4-8.2)
[2017-08-05] MEDS: INSULIN LISPRO 100 UNITS/ML, PEN SQ-INSULIN SCH ×4 (07:00→20:29)
[2017-08-05 07:34] VITALS: BP 125/67
[2017-08-05] MEDS: CALCIUM ACETATE 667 MG CAPSULE PO SCH ×3 (08:35→17:09)
[2017-08-05] MEDS: SENNA/DOCUSATE TABLET PO SCH (08:36)
[2017-08-05] MEDS: AMLODIPINE 5 MG TABLET PO SCH (08:36)
[2017-08-05 14:00] VITALS: BP 110/66
[2017-08-05 19:21] VITALS: BP 157/62
[2017-08-05] MEDS: LOSARTAN 25MG TABLET PO SCH (20:28)
[2017-08-06] VITALS (8 sets, daily range): BP systolic 138–186; BP diastolic 50–69
[2017-08-06] MEDS ORDERED: ACETAMINOPHEN 500 MG TABLET ONE (01:12)
[2017-08-06] MEDS ORDERED: ACETAMINOPHEN 500 MG TABLET PO ONE (01:30)
[2017-08-06] MEDS: CARVEDILOL 12.5 MG TABLET PO SCH ×2 (05:54→17:20)
[2017-08-06] MEDS: INSULIN LISPRO 100 UNITS/ML, PEN SQ-INSULIN SCH ×4 (07:00→20:24)
[2017-08-06] MEDS: SENNA/DOCUSATE TABLET PO SCH (09:00)
[2017-08-06 09:17] LABS: ANION GAP 13 mmol/L (5-15); CALCIUM 8.5 mg/dL (8.5-10.1); CHLORIDE 99 mmol/L (98-107); CREATININE 5.36 mg/dL (0.55-1.02)
[2017-08-06] MEDS: AMLODIPINE 5 MG TABLET PO SCH (09:41)
[2017-08-06] MEDS: CALCIUM ACETATE 667 MG CAPSULE PO SCH ×3 (09:41→17:16)
[2017-08-06] MEDS: HEPARIN 5,000 UNITS/ML, 1ML SQ SCH ×4 (09:42→23:21)
[2017-08-06] MEDS: hydrALAzine 20 MG/ML, 1ML IV PRN ×2 (13:33→18:27)
[2017-08-06] MEDS: LOSARTAN 25MG TABLET PO SCH (20:24)
[2017-08-06] MEDS: ONDANSETRON 4 MG TABLET PO PRN (20:43)
[2017-08-07 00:33] VITALS: BP 137/64
[2017-08-07] MEDS: CARVEDILOL 12.5 MG TABLET PO SCH ×2 (05:14→17:34)
[2017-08-07 06:52] VITALS: BP 156/63
[2017-08-07] MEDS: INSULIN LISPRO 100 UNITS/ML, PEN SQ-INSULIN SCH ×4 (07:00→20:26)
[2017-08-07] MEDS ORDERED: ALPR0.25 PO (07:51)
[2017-08-07] MEDS ORDERED: LOSA25TA2 PO (07:51)
[2017-08-07] MEDS ORDERED: HYDR-3341 PO (07:51)
[2017-08-07 08:16] VITALS: BP 169/61
[2017-08-07] MEDS: AMLODIPINE 5 MG TABLET PO SCH (08:17)
[2017-08-07] MEDS: HEPARIN 5,000 UNITS/ML, 1ML SQ SCH ×2 (08:18→17:34)
[2017-08-07] MEDS: CALCITRIOL 0.25 MCG CAPSULE PO SCH (08:18)
[2017-08-07] MEDS: CALCIUM ACETATE 667 MG CAPSULE PO SCH ×3 (08:18→17:37)
[2017-08-07] MEDS: SENNA/DOCUSATE TABLET PO SCH (08:28)
[2017-08-07] MEDS: ONDANSETRON ODT 4 MG PO PRN ×2 (09:08→20:53)
[2017-08-07 12:16] VITALS: BP 134/54
[2017-08-07 17:32] VITALS: BP 148/63
[2017-08-07 19:30] VITALS: BP 146/60
[2017-08-07] MEDS: LOSARTAN 25MG TABLET PO SCH (20:26)
[2017-08-08] MEDS: HEPARIN 5,000 UNITS/ML, 1ML SQ SCH ×3 (00:22→16:00)
[2017-08-08 00:57] VITALS: BP 165/69
[2017-08-08] MEDS ORDERED: ALUMINUM/MAG/SIMETHICONE 30 ML UDC PO ONE (03:00)
[2017-08-08] MEDS: CARVEDILOL 12.5 MG TABLET PO SCH (05:45)
[2017-08-08 06:50] VITALS: BP 150/55
[2017-08-08] MEDS: INSULIN LISPRO 100 UNITS/ML, PEN SQ-INSULIN SCH ×3 (07:00→16:27)
[2017-08-08] MEDS: CALCIUM ACETATE 667 MG CAPSULE PO SCH ×2 (07:59→12:00)
[2017-08-08] MEDS: SENNA/DOCUSATE TABLET PO SCH (08:00)
[2017-08-08] MEDS: AMLODIPINE 5 MG TABLET PO SCH (09:00)
[2017-08-08] MEDS ORDERED: OMEPRAZOLE 20 MG CAPSULE.DR PO SCH (10:00)
[2017-08-08 13:27] VITALS: BP 145/71
== END 2017-08-08 16:55 | DRG 70 ==
LOC: ED 16:46 → EDIP 17:39 → 4WST 19:30 → 4EST 07-31 22:36
PROVIDERS: ADMIT Hospitalist; ATTEND Hospitalist
PROC: 5A1D70Z Performance of Urinary Filtration, Intermittent, Less than 6 Hours Per Day (ICD-10-PCS; principal; 2017-07-30)
PROC: 0T9B70Z Drainage of Bladder with Drainage Device, Via Natural or Artificial Opening (ICD-10-PCS; 2017-07-30)
PROC: 5A1D70Z Performance of Urinary Filtration, Intermittent, Less than 6 Hours Per Day (ICD-10-PCS; 2017-07-31)
PROC: 5A1D70Z Performance of Urinary Filtration, Intermittent, Less than 6 Hours Per Day (ICD-10-PCS; 2017-08-01)
PROC: 5A1D70Z Performance of Urinary Filtration, Intermittent, Less than 6 Hours Per Day (ICD-10-PCS; 2017-08-03)
PROC: 5A1D70Z Performance of Urinary Filtration, Intermittent, Less than 6 Hours Per Day (ICD-10-PCS; 2017-08-05)
PROC: 5A1D70Z Performance of Urinary Filtration, Intermittent, Less than 6 Hours Per Day (ICD-10-PCS; 2017-08-08)
DX: G93.41 Metabolic encephalopathy (principal); N18.6 End stage renal disease; I13.2 Hypertensive heart and chronic kidney disease with heart failure and with stage 5 chronic kidney disease, or end stage renal disease; E44.0 Moderate protein-calorie malnutrition; E87.1 Hypo-osmolality and hyponatremia; I50.32 Chronic diastolic (congestive) heart failure; J96.10 Chronic respiratory failure, unspecified whether with hypoxia or hypercapnia; M48.54XA Collapsed vertebra, not elsewhere classified, thoracic region, initial encounter for fracture; I16.1 Hypertensive emergency; I16.0 Hypertensive urgency; Z99.2 Dependence on renal dialysis; E11.22 Type 2 diabetes mellitus with diabetic chronic kidney disease; D63.1 Anemia in chronic kidney disease; E11.43 Type 2 diabetes mellitus with diabetic autonomic (poly)neuropathy; Z68.30 Body mass index [BMI] 30.0-30.9, adult; E21.3 Hyperparathyroidism, unspecified; E55.9 Vitamin D deficiency, unspecified; E83.39 Other disorders of phosphorus metabolism; E88.89 Other specified metabolic disorders; F32.9 Major depressive disorder, single episode, unspecified; F41.1 Generalized anxiety disorder; I34.0 Nonrheumatic mitral (valve) insufficiency; I45.81 Long QT syndrome; K31.84 Gastroparesis; K21.9 Gastro-esophageal reflux disease without esophagitis; N20.0 Calculus of kidney; N25.0 Renal osteodystrophy; Z79.4 Long term (current) use of insulin; Z78.1 Physical restraint status; Z82.49 Family history of ischemic heart disease and other diseases of the circulatory system; Z83.3 Family history of diabetes mellitus; Z87.442 Personal history of urinary calculi; Z87.891 Personal history of nicotine dependence; Z90.710 Acquired absence of both cervix and uterus; Z99.81 Dependence on supplemental oxygen; Z90.49 Acquired absence of other specified parts of digestive tract; Z88.5 Allergy status to narcotic agent; Z88.8 Allergy status to other drugs, medicaments and biological substances; Z88.6 Allergy status to analgesic agent
CPT/HCPCS: 36415; 36600; 70450; 71045; 74018; 80048; 80053; 80307; 80329; 81001; 82140; 82803; 82962; 83605; 83735; 84100; 84439; 84443; 84484; 85025; 85610; 85730; 87040; 93005; 96374; 96375; J1644; J2250; J2405; J3486; Q0162; G0480; J0360; J1630; J2060; J2270; S0028

== ENCOUNTER 2017-12-27 17:09 | Emergency (ER) | payer OTHER, MEDICARE ==
[~2017-12-27] VITALS: Ht 152.4 cm; Wt 54.0 kg
[~2017-12-27 17:09] MED LIST changes: -AMLO5TAB2 PO; +AMLO5TAB7 PO; +BACL20TA PO; +HYDR-3342 PO; -LOSA100T6 PO; +LOSA100T7 PO; +LOSA25TA2 PO
[2017-12-27 18:02] LABS: BASOPHILS # (AUTO) 0.04 x10^3/uL (0-0.1); BASOPHILS % (AUTO) 1 % (0-1); EOSINOPHILS # (AUTO) 0.08 x10^3/uL (0-0.4); EOSINOPHILS % (AUTO) 1 % (1-7); LYMPHOCYTES # (AUTO) 1.47 x10^3/uL (1-3.4); LYMPHOCYTES % (AUTO) 22 % (22-44); MD NO; MEAN CORPUSCULAR HEMOGLOBIN 32.4 pg (27.0-34.8); MEAN CORPUSCULAR HGB CONC 33.7 g/dL (32.4-35.8); MEAN CORPUSCULAR VOLUME 96.1 fL (80-100); MEAN PLATELET VOLUME 8.2 fL (7.4-10.4); MONOCYTES # (AUTO) 0.57 x10^3/uL (0.2-0.8); MONOCYTES % (AUTO) 9 % (2-9); NEUTROPHILS # (AUTO) 4.47 x10^3/uL (1.8-6.8); NEUTROPHILS % (AUTO) 68 % (42-75); PLATELET COUNT 244 x10^3/uL (130-400); RED BLOOD COUNT 3.49 x10^6/uL (3.82-5.3); RED CELL DISTRIBUTION WIDTH 14.4 % (9.6-15.2)
[2017-12-27 18:13] LABS: ALBUMIN 3.4 g/dL (3.4-5.0); ANION GAP 11 mmol/L (5-15); CALCIUM 7.9 mg/dL (8.5-10.1); CHLORIDE 96 mmol/L (98-107)
[2017-12-27 18:18] LABS: ALANINE AMINOTRANSFERASE 27 U/L (12-78); ALKALINE PHOSPHATASE 117 U/L (45-117); BILIRUBIN,TOTAL 0.8 mg/dL (0.2-1.0); CREATININE 6.65 mg/dL (0.55-1.02); TOTAL PROTEIN 7.8 g/dL (6.4-8.2); TROPONIN I < 0.015 ng/mL (0.000-0.045)
[2017-12-27] MEDS ORDERED: SODIUM CHLORIDE FLUSH 10ML SYR IVF ONE (19:00)
[2017-12-27] MEDS ORDERED: OMNIPAQUE 350 MG/ML, 100ML BOTTLE ONE (20:25)
[2017-12-27 21:26] VITALS: BP 154/46
== END 2017-12-27 21:29 | disposition home or self-care (01) ==
LOC: ED 18:24
DX: R06.00 Dyspnea, unspecified (principal); E11.22 Type 2 diabetes mellitus with diabetic chronic kidney disease; I13.2 Hypertensive heart and chronic kidney disease with heart failure and with stage 5 chronic kidney disease, or end stage renal disease; I50.9 Heart failure, unspecified; N18.6 End stage renal disease; Z99.2 Dependence on renal dialysis; K21.9 Gastro-esophageal reflux disease without esophagitis; Z87.891 Personal history of nicotine dependence
CPT/HCPCS: 36415; 71046; 71260; 80053; 83880; 84484; 85025; 93005; 99285; Q9967

== ENCOUNTER 2019-07-02 05:46 | Emergency (ER) | payer MEDICARE, OTHER ==
[~2019-07-02] VITALS: Ht 152.4 cm; Wt 72.0 kg
[~2019-07-02 05:46] MED LIST changes: +AMLO-150 PO; -AMLO5TAB7 PO; -CLON0.1T PO; +CLON0.1T22 PO; +LOSA100T14 PO; -LOSA100T7 PO; -OMEP10CA4 PO; +OMEP10CA5 PO; +OMEP40CA42 PO; -OMEP40CA6 PO; +SERT100T32 PO; -SERT100T5 PO; +SERT50TA28 PO; -SERT50TA5 PO; -VANC250C2 PO; +VANC250C3 PO
--- NOTE | 2019-07-02 06:08 | NUR ---
EKG COMPLETED IN TRIAGE, PROVIDER AT BEDSIDE WITH PATIENT.
--- NOTE | 2019-07-02 06:13 | NUR ---
PORTABLE CHEST XRAY COMPELTED. PATIENT TOLERATED WELL. WILL AWAIT FURTHER ORDERS.
[2019-07-02] MEDS ORDERED: ALBUTEROL SULFATE 2.5 MG/3 ML ONE (06:23)
[2019-07-02] MEDS ORDERED: ALBUTEROL/IPRATROPIUM 2.5MG/0.5MG, 3 ML ONE (06:24)
[2019-07-02] MEDS ORDERED: ALBUTEROL/IPRATROPIUM 2.5MG/0.5MG, 3 ML NPPB ONE (06:30)
--- NOTE | 2019-07-02 06:48 | NUR ---
PATIENT FINISHED BREATHING TREATMENT. LAB AT BEDSIDE COLLECTING LABS. PATIENT TOLERATING INTERVENTIONS WELL. PATIENT GIVEN TISSUES PER REQUEST.
--- NOTE | 2019-07-02 06:54 | NUR ---
REPORT GIVEN TO ONCOMING RN
--- NOTE | 2019-07-02 06:54 | NUR ---
BEDSIDE REPORT FROM KENDRA JOYA MD AT BEDSIDE
[2019-07-02 07:03] LABS: BASOPHILS # (AUTO) 0.03 x10^3/uL (0-0.1); BASOPHILS % (AUTO) 0 % (0-1); CHLORIDE 98 mmol/L (98-107); EOSINOPHILS # (AUTO) 0.15 x10^3/uL (0-0.4); EOSINOPHILS % (AUTO) 3 % (1-7); LYMPHOCYTES # (AUTO) 1.14 x10^3/uL (1-3.4); LYMPHOCYTES % (AUTO) 19 % (22-44); MD NO; MEAN CORPUSCULAR HEMOGLOBIN 32.3 pg (27.0-34.8); MEAN CORPUSCULAR HGB CONC 33.8 g/dL (32.4-35.8); MEAN CORPUSCULAR VOLUME 95.5 fL (80-100); MEAN PLATELET VOLUME 8.8 fL (7.4-10.4); MONOCYTES # (AUTO) 0.47 x10^3/uL (0.2-0.8); MONOCYTES % (AUTO) 8 % (2-9); NEUTROPHILS # (AUTO) 4.17 x10^3/uL (1.8-6.8); NEUTROPHILS % (AUTO) 70 % (42-75); PLATELET COUNT 180 x10^3/uL (130-400); RED BLOOD COUNT 3.11 x10^6/uL (3.82-5.3); RED CELL DISTRIBUTION WIDTH 13.4 % (9.6-15.2)
[2019-07-02 07:18] LABS: ANION GAP 13 mmol/L (5-15); CALCIUM 8.7 mg/dL (8.5-10.1); CREATININE 9.55 mg/dL (0.55-1.02)
[2019-07-02 07:21] LABS: TROPONIN I < 0.015 ng/mL (0.000-0.045)
[2019-07-02 07:39] VITALS: BP 128/42
--- NOTE | 2019-07-02 08:08 | NUR ---
pt resting in [facility], awaiting recheck by
--- NOTE | 2019-07-02 08:43 | NUR ---
attempted to DC pt, pt stated MD said "he" wanted to give her rx for steroid, notified
== END 2019-07-02 08:54 | disposition home or self-care (01) ==
LOC: ED 08:14
DX: J44.1 Chronic obstructive pulmonary disease with (acute) exacerbation (principal); E87.79 Other fluid overload; J84.10 Pulmonary fibrosis, unspecified; I13.2 Hypertensive heart and chronic kidney disease with heart failure and with stage 5 chronic kidney disease, or end stage renal disease; E11.22 Type 2 diabetes mellitus with diabetic chronic kidney disease; N18.6 End stage renal disease; I50.9 Heart failure, unspecified; Z87.891 Personal history of nicotine dependence
CPT/HCPCS: 36415; 71045; 80048; 83880; 84484; 85025; 93005; 94640; 99285

== ENCOUNTER 2020-01-14 13:51 | Emergency (ER) | payer MEDICARE, BC ==
[~2020-01-14] VITALS: Ht 152.4 cm; Wt 68.0 kg
--- NOTE | 2020-01-14 14:53 | NUR ---
Pt placed on NC @ 2L, states feeling better.
[2020-01-14 14:55] LABS: BASOPHILS % (AUTO) 1 % (0-1); EOSINOPHILS % (AUTO) 2 % (1-7); LYMPHOCYTES % (AUTO) 20 % (22-44); MEAN CORPUSCULAR HEMOGLOBIN 32.2 pg (27.0-34.8); MEAN CORPUSCULAR HGB CONC 34.3 g/dL (32.4-35.8); MEAN PLATELET VOLUME 9.3 fL (7.4-10.4); MONOCYTES % (AUTO) 8 % (2-9); NEUTROPHILS % (AUTO) 69 % (42-75); PLATELET COUNT 164 x10^3/uL (130-400); RED BLOOD COUNT 3.04 x10^6/uL (3.82-5.3); RED CELL DISTRIBUTION WIDTH 13.7 % (9.6-15.2)
[2020-01-14 14:59] LABS: MD NO
[2020-01-14 15:08] LABS: ALBUMIN 3.7 g/dL (3.4-5.0); ANION GAP 7 mmol/L (5-15); CALCIUM 8.9 mg/dL (8.5-10.1); CHLORIDE 92 mmol/L (98-107); CREATININE 5.29 mg/dL (0.55-1.02)
[2020-01-14 15:11] LABS: TROPONIN I < 0.015 ng/mL (0.000-0.045)
--- NOTE | 2020-01-14 17:01 | NUR ---
Pt resting, resp even/unlabored Updated on POC.
--- NOTE | 2020-01-14 17:20 | NUR ---
Trop draw at 1715. Pt resting, no needs at this time. VS updated.
[2020-01-14 17:56] LABS: TROPONIN I < 0.015 ng/mL (0.000-0.045)
[2020-01-14 18:04] VITALS: BP 109/88
== END 2020-01-14 18:07 | disposition home or self-care (01) ==
LOC: ED 14:13
DX: R07.2 Precordial pain (principal); R06.02 Shortness of breath; R20.2 Paresthesia of skin; R94.31 Abnormal electrocardiogram [ECG] [EKG]; I50.9 Heart failure, unspecified; J44.9 Chronic obstructive pulmonary disease, unspecified; I13.2 Hypertensive heart and chronic kidney disease with heart failure and with stage 5 chronic kidney disease, or end stage renal disease; N18.6 End stage renal disease; E11.22 Type 2 diabetes mellitus with diabetic chronic kidney disease; Z90.49 Acquired absence of other specified parts of digestive tract; Z90.710 Acquired absence of both cervix and uterus
CPT/HCPCS: 36415; 71045; 80048; 82040; 84484; 85025; 93005; 99285

== ENCOUNTER 2020-03-16 04:13 | Emergency (ER) | payer MEDICARE, BC ==
[~2020-03-16] VITALS: Ht 152.4 cm; Wt 68.5 kg
[~2020-03-16 04:13] MED LIST changes: +AMLO-211 PO; +ASPI-515 PO; +AZIT500T10 PO; +CARV25TA12 PO; +CEFD300C37 PO; +ERGO500017 PO; +HYDR-1067 PO; -HYDR-3240 PO; +LISI40TA PO; +NADO20TA2 PO; -OXYC5TAB3 PO; +OXYC5TAB98 PO; +ROPI0.25 PO; +ROSU20TA2 PO; +SERT50TA PO
[2020-03-16] MEDS ORDERED: SODIUM CHLORIDE FLUSH 10ML SYR IVF ONE (04:30)
--- NOTE | 2020-03-16 05:15 | NUR ---
PATIENT IS DIFFICULT IV START. ATTEMPTED ULTRASOUND IV, UNSUCCESSFUL. DISCUSSED PLAN OF CARE WITH PATIENT. WILL WAIT FOR IV REQUIREMENT PRIOR TO ATTEMPTING A SECOND TIME. PATIENT VERBALIZED APPROVAL. LABS COLLECTED AND SENT.
[2020-03-16 05:47] LABS: ALANINE AMINOTRANSFERASE 34 U/L (12-78); ALBUMIN 3.6 g/dL (3.4-5.0); ANION GAP 9 mmol/L (5-15); CALCIUM 8.7 mg/dL (8.5-10.1); CHLORIDE 102 mmol/L (98-107); CREATININE 8.48 mg/dL (0.55-1.02)
[2020-03-16 05:54] LABS: BASOPHILS % (AUTO) 1 % (0-1); EOSINOPHILS % (AUTO) 4 % (1-7); LYMPHOCYTES % (AUTO) 13 % (22-44); MEAN CORPUSCULAR HGB CONC 33.4 g/dL (32.4-35.8); MEAN PLATELET VOLUME 9.3 fL (7.4-10.4); MONOCYTES % (AUTO) 6 % (2-9); NEUTROPHILS % (AUTO) 76 % (42-75); PLATELET COUNT 188 x10^3/uL (130-400); RED BLOOD COUNT 3.07 x10^6/uL (3.82-5.3)
[2020-03-16 06:04] LABS: ALKALINE PHOSPHATASE 209 U/L (45-117); BILIRUBIN,TOTAL 0.6 mg/dL (0.2-1.0); TOTAL PROTEIN 7.7 g/dL (6.4-8.2); TROPONIN I 0.072 ng/mL (0.000-0.045)
[2020-03-16 06:30] VITALS: BP 151/52
--- NOTE | 2020-03-16 06:32 | NUR ---
PATIENT HIT CALL BED; REQUESTED BLANKET AND ICE. GIVEN TO PATIENT. VITAL SIGNS STABLE. UPDATED ON PLAN OF CARE. NO NOTED ADDITIONAL NEEDS AT THIS TIME. WILL CONTINUE TO MONITOR.
[2020-03-16 06:33] LABS: MD SCAN
--- NOTE | 2020-03-16 06:49 | NUR ---
REPORT GIVEN TO ONCOMING RN
== END 2020-03-16 08:35 | disposition home or self-care (01) ==
LOC: ED 07:36
DX: I13.2 Hypertensive heart and chronic kidney disease with heart failure and with stage 5 chronic kidney disease, or end stage renal disease (principal); E11.22 Type 2 diabetes mellitus with diabetic chronic kidney disease; N18.6 End stage renal disease; I50.41 Acute combined systolic (congestive) and diastolic (congestive) heart failure; D63.1 Anemia in chronic kidney disease; R94.31 Abnormal electrocardiogram [ECG] [EKG]; R06.02 Shortness of breath; Z88.6 Allergy status to analgesic agent; Z88.5 Allergy status to narcotic agent; Z88.1 Allergy status to other antibiotic agents
CPT/HCPCS: 36415; 71045; 80053; 83880; 84484; 85025; 87040; 93005; 99285

== ENCOUNTER 2020-09-17 08:10 | Inpatient (IN) | payer MEDICARE, BC ==
[~2020-09-17] VITALS: Ht 152.4 cm; Wt 66.5 kg
[~2020-09-17 08:10] MED LIST changes: +ACID1TAB7 PO; -ASPI-515 PO; +ASPI-963 PO; +ATOR-2 PO; +CARV6.2512 PO; +CLOP75TA PO; +FERR-36 PO; +FERR15DR PO; +FLUO10CA13 PO; -HYDR-1067 PO; +HYDR-2214 PO; +INSU100I11 SQ-INSULIN; -LISI40TA PO; +LISI40TA9 PO; +METO5TAB57 PO; -OMEP40CA42 PO; +OMEP40CA8 PO; +SENN-211 PO; +SERT-331 PO; -SERT25TA3 PO
--- NOTE | 2020-09-17 08:15 | NUR ---
PT BIBA FROM DIALYSIS TREATMENT FOR C/P CP/SOB/N/V. PT RECEIVED 2/4L DRAINED TODAY. PT C/O L-SIDED CP THAT DOES NOT RADIATE, PAIN INCREASES ON INSPIRATION. PT STATES CP HAS DECREASED SINCE ARRIVAL TO ED. PT ON 2L NC SUPERVISOR CONCRETE STONE FABRICATING, SPO2 98%. PT CHANGED INTO GOWN, ALL MONITORS IN PLACE. CALL LIGHT WITHIN REACH.
--- NOTE | 2020-09-17 08:18 | NUR ---
ERP AT BS FOR EVAL
--- NOTE | 2020-09-17 08:29 | NUR ---
xray at bs
[2020-09-17] MEDS ORDERED: SODIUM CHLORIDE FLUSH 10ML SYR IVF ONE (08:30)
[2020-09-17 08:43] LABS: BASOPHILS % (AUTO) 1 % (0-1); EOSINOPHILS % (AUTO) 2 % (1-7); LYMPHOCYTES % (AUTO) 15 % (22-44); MEAN CORPUSCULAR HEMOGLOBIN 32.6 pg (27.0-34.8); MEAN CORPUSCULAR HGB CONC 34.2 g/dL (32.4-35.8); MEAN PLATELET VOLUME 8.6 fL (7.4-10.4); MONOCYTES % (AUTO) 7 % (2-9); NEUTROPHILS % (AUTO) 76 % (42-75); PLATELET COUNT 198 x10^3/uL (130-400); RED BLOOD COUNT 3.33 x10^6/uL (3.82-5.3); RED CELL DISTRIBUTION WIDTH 14.4 % (9.6-15.2)
[2020-09-17 08:55] LABS: ALBUMIN 4.1 g/dL (3.4-5.0); ANION GAP 13 mmol/L (5-15); CHLORIDE 90 mmol/L (98-107); CREATININE 6.74 mg/dL (0.55-1.02)
--- NOTE | 2020-09-17 09:25 | NUR ---
PT RESTING ON [place], NADN/VSS. PT DENIES CP AT THIS TIME. AT BS. CALL LIGHT WITHIN REACH, BED IN LOWEST POSITION, BED RAILS UP X2. WCTM
--- NOTE | 2020-09-17 09:56 | NUR ---
MULTIPLE PIV ATTEMPTS, ROSE RN AT FOR ULTRASOND PIV
--- NOTE | 2020-09-17 10:51 | NUR ---
REPORT RECEIVED FROM SERA JOYA. ASSUMING CARE AT THIS TIME. AWAITING ADMIT BED.
--- NOTE | 2020-09-17 11:24 | NUR ---
Pt to be admitted to [facility], room 503. REPORT GIVEN
[2020-09-17 11:50] VITALS: BP 157/70
[2020-09-17] MEDS ORDERED: ERGOCALCIFEROL 50,000 UNIT CAPSULE PO SCH (12:30)
[2020-09-17] MEDS ORDERED: ROPINIROLE 0.25MG TABLET PO PRN (12:30)
[2020-09-17 12:57] VITALS: BP 155/75
[2020-09-17] MEDS ORDERED: POLYETHYLENE GLYCOL 17 GM PACKET PO PRN (13:00)
[2020-09-17] MEDS ORDERED: [UNRECOGNIZED DRUG - OTHER] MC SCH (13:00)
[2020-09-17] MEDS ORDERED: ONDANSETRON 2MG/ML, 2ML IVPush PRN (13:00)
[2020-09-17] MEDS ORDERED: HEPARIN 5,000 UNITS/ML, 1ML IV ONE (13:30)
[2020-09-17] MEDS ORDERED: HEPARIN 5,000 UNITS/ML, 1ML IV PRN (13:30)
[2020-09-17] MEDS: HEPARIN 25,000 UNITS/250ML PMX 250 ML IV PRN (14:53)
[2020-09-17] MEDS ORDERED: ALPR0.25 PO (16:17)
[2020-09-17 17:33] VITALS: BP 150/66
[2020-09-17] MEDS: CALCIUM ACETATE 667 MG CAPSULE PO SCH (17:36)
[2020-09-17] MEDS: METOPROLOL TARTRATE 25 MG TAB PO SCH (17:37)
[2020-09-17 20:00] VITALS: BP 131/72
[2020-09-17] MEDS: ATORVASTATIN 80 MG TABLET PO SCH (21:16)
[2020-09-18 01:35] VITALS: BP 136/69
[2020-09-18 03:42] LABS: BASOPHILS % (AUTO) 1 % (0-1); EOSINOPHILS % (AUTO) 2 % (1-7); LYMPHOCYTES % (AUTO) 24 % (22-44); MEAN CORPUSCULAR HEMOGLOBIN 32.8 pg (27.0-34.8); MEAN CORPUSCULAR HGB CONC 34.3 g/dL (32.4-35.8); MEAN PLATELET VOLUME 8.8 fL (7.4-10.4); MONOCYTES % (AUTO) 12 % (2-9); NEUTROPHILS % (AUTO) 62 % (42-75); PLATELET COUNT 168 x10^3/uL (130-400); RED BLOOD COUNT 3.03 x10^6/uL (3.82-5.3); RED CELL DISTRIBUTION WIDTH 13.9 % (9.6-15.2)
[2020-09-18 03:52] LABS: ALBUMIN 3.3 g/dL (3.4-5.0); ANION GAP 14 mmol/L (5-15); CALCIUM 8.5 mg/dL (8.5-10.1); CHLORIDE 92 mmol/L (98-107)
[2020-09-18 03:57] LABS: % IRON SATURATION 43 % (20-55); ALANINE AMINOTRANSFERASE 21 U/L (12-78); ALKALINE PHOSPHATASE 98 U/L (45-117); BILIRUBIN,TOTAL 0.5 mg/dL (0.2-1.0); CREATININE 9.13 mg/dL (0.55-1.02); IRON LEVEL 83 mcg/dL (50-170); TOTAL IRON BINDING CAPACITY 194 mcg/dL (250-450); TOTAL PROTEIN 7.1 g/dL (6.4-8.2)
[2020-09-18] MEDS: METOPROLOL TARTRATE 25 MG TAB PO SCH ×2 (05:21→17:14)
[2020-09-18 06:46] VITALS: BP 130/63
[2020-09-18] MEDS: CALCIUM ACETATE 667 MG CAPSULE PO SCH ×3 (08:00→17:14)
[2020-09-18] MEDS: FERROUS SULFATE 325 MG TABLET PO SCH (08:38)
[2020-09-18] MEDS: PANTOPRAZOLE 40MG TABLET PO SCH (08:38)
[2020-09-18] MEDS: FLUOXETINE 10 MG CAP PO SCH (08:39)
[2020-09-18] MEDS: CLOPIDOGREL 75 MG TABLET PO SCH (08:39)
[2020-09-18] MEDS: LISINOPRIL 40 MG TABLET PO SCH ×2 (08:39→20:02)
[2020-09-18] MEDS: ASPIRIN 81 MG TABLET EC PO SCH (08:39)
[2020-09-18] MEDS ORDERED: LISINOPRIL 40 MG TABLET PO SCH (09:00)
[2020-09-18 14:26] VITALS: BP 117/71
[2020-09-18 17:13] VITALS: BP 103/62
[2020-09-18 18:36] VITALS: BP 117/66
[2020-09-18] MEDS: ATORVASTATIN 80 MG TABLET PO SCH (20:02)
[2020-09-18] MEDS: HEPARIN 25,000 UNITS/250ML PMX 250 ML IV PRN (21:52)
[2020-09-19 01:16] VITALS: BP 118/61
[2020-09-19] MEDS: METOPROLOL TARTRATE 25 MG TAB PO SCH ×2 (05:56→17:26)
[2020-09-19 06:10] LABS: BASOPHILS % (AUTO) 1 % (0-1); EOSINOPHILS % (AUTO) 2 % (1-7); LYMPHOCYTES % (AUTO) 12 % (22-44); MEAN CORPUSCULAR HEMOGLOBIN 32.4 pg (27.0-34.8); MEAN CORPUSCULAR HGB CONC 33.8 g/dL (32.4-35.8); MEAN PLATELET VOLUME 8.9 fL (7.4-10.4); MONOCYTES % (AUTO) 10 % (2-9); NEUTROPHILS % (AUTO) 76 % (42-75); PLATELET COUNT 176 x10^3/uL (130-400); RED CELL DISTRIBUTION WIDTH 13.6 % (9.6-15.2)
[2020-09-19 06:19] LABS: ALBUMIN 3.7 g/dL (3.4-5.0); ANION GAP 10 mmol/L (5-15); CHLORIDE 94 mmol/L (98-107); CREATININE 7.61 mg/dL (0.55-1.02)
[2020-09-19 06:26] VITALS: BP 126/66
[2020-09-19] MEDS: CALCIUM ACETATE 667 MG CAPSULE PO SCH ×3 (08:00→17:24)
[2020-09-19] MEDS: FLUOXETINE 10 MG CAP PO SCH (13:12)
[2020-09-19] MEDS: PANTOPRAZOLE 40MG TABLET PO SCH (13:12)
[2020-09-19] MEDS: FERROUS SULFATE 325 MG TABLET PO SCH (13:13)
[2020-09-19] MEDS: ASPIRIN 81 MG TABLET EC PO SCH (13:13)
[2020-09-19] MEDS: CLOPIDOGREL 75 MG TABLET PO SCH (13:13)
[2020-09-19] MEDS: LISINOPRIL 40 MG TABLET PO SCH ×2 (13:13→21:12)
[2020-09-19] MEDS: CALCITRIOL 0.25 MCG CAPSULE PO SCH (13:13)
[2020-09-19 14:00] VITALS: BP 94/50
[2020-09-19 18:46] VITALS: BP 113/75
[2020-09-19] MEDS: ATORVASTATIN 80 MG TABLET PO SCH (21:12)
[2020-09-20 00:23] VITALS: BP 122/79
[2020-09-20 05:35] LABS: BASOPHILS % (AUTO) 1 % (0-1); EOSINOPHILS % (AUTO) 2 % (1-7); LYMPHOCYTES % (AUTO) 20 % (22-44); MEAN CORPUSCULAR HEMOGLOBIN 32.6 pg (27.0-34.8); MEAN CORPUSCULAR HGB CONC 34.3 g/dL (32.4-35.8); MEAN PLATELET VOLUME 8.9 fL (7.4-10.4); MONOCYTES % (AUTO) 14 % (2-9); NEUTROPHILS % (AUTO) 64 % (42-75); PLATELET COUNT 157 x10^3/uL (130-400); RED BLOOD COUNT 3.47 x10^6/uL (3.82-5.3); RED CELL DISTRIBUTION WIDTH 13.7 % (9.6-15.2)
[2020-09-20 05:45] LABS: ALBUMIN 3.4 g/dL (3.4-5.0); ANION GAP 8 mmol/L (5-15); CALCIUM 9.5 mg/dL (8.5-10.1); CHLORIDE 98 mmol/L (98-107)
[2020-09-20 05:48] LABS: CREATININE 6.26 mg/dL (0.55-1.02)
[2020-09-20] MEDS: METOPROLOL TARTRATE 25 MG TAB PO SCH (06:06)
[2020-09-20 06:49] VITALS: BP 105/69
[2020-09-20] MEDS: CALCIUM ACETATE 667 MG CAPSULE PO SCH ×2 (09:00→12:27)
[2020-09-20] MEDS: FLUOXETINE 10 MG CAP PO SCH (09:00)
[2020-09-20] MEDS: CLOPIDOGREL 75 MG TABLET PO SCH (09:00)
[2020-09-20] MEDS: PANTOPRAZOLE 40MG TABLET PO SCH (09:00)
[2020-09-20] MEDS: FERROUS SULFATE 325 MG TABLET PO SCH (09:00)
[2020-09-20] MEDS ORDERED: ERGOCALCIFEROL 50,000 UNIT CAPSULE PO SCH (09:00)
[2020-09-20] MEDS: CALCITRIOL 0.25 MCG CAPSULE PO SCH (09:00)
[2020-09-20] MEDS: ASPIRIN 81 MG TABLET EC PO SCH (09:00)
[2020-09-20] MEDS: LISINOPRIL 40 MG TABLET PO SCH (09:01)
[2020-09-20] MEDS ORDERED: LOSA25TA25 PO (13:01)
[2020-09-20] MEDS ORDERED: ATOR-2 PO (13:01)
[2020-09-21] MEDS ORDERED: LOSARTAN 25MG TABLET PO SCH (09:00)
== END 2020-09-20 16:56 | disposition home health service (06) | DRG 280 ==
LOC: ED 09:11 → SUATTDRO 10:33 → EDIP 10:33 → 5SO 11:25
PROVIDERS: ADMIT Internal Medicine; ATTEND Hospitalist
PROC: 5A1D70Z Performance of Urinary Filtration, Intermittent, Less than 6 Hours Per Day (ICD-10-PCS; principal; 2020-09-18)
PROC: 5A1D70Z Performance of Urinary Filtration, Intermittent, Less than 6 Hours Per Day (ICD-10-PCS; 2020-09-19)
DX: I21.4 Non-ST elevation (NSTEMI) myocardial infarction (principal); N18.6 End stage renal disease; I13.2 Hypertensive heart and chronic kidney disease with heart failure and with stage 5 chronic kidney disease, or end stage renal disease; C64.2 Malignant neoplasm of left kidney, except renal pelvis; E87.1 Hypo-osmolality and hyponatremia; I50.22 Chronic systolic (congestive) heart failure; J96.10 Chronic respiratory failure, unspecified whether with hypoxia or hypercapnia; I95.3 Hypotension of hemodialysis; I25.110 Atherosclerotic heart disease of native coronary artery with unstable angina pectoris; E11.22 Type 2 diabetes mellitus with diabetic chronic kidney disease; E11.40 Type 2 diabetes mellitus with diabetic neuropathy, unspecified; E11.65 Type 2 diabetes mellitus with hyperglycemia; E78.5 Hyperlipidemia, unspecified; D63.1 Anemia in chronic kidney disease; K21.9 Gastro-esophageal reflux disease without esophagitis; Z66 Do not resuscitate; I25.5 Ischemic cardiomyopathy; I34.0 Nonrheumatic mitral (valve) insufficiency; J44.9 Chronic obstructive pulmonary disease, unspecified; M89.8X9 Other specified disorders of bone, unspecified site; M89.9 Disorder of bone, unspecified; Z87.891 Personal history of nicotine dependence; Z90.711 Acquired absence of uterus with remaining cervical stump; Z99.2 Dependence on renal dialysis; Z99.81 Dependence on supplemental oxygen; Z90.49 Acquired absence of other specified parts of digestive tract; Z88.5 Allergy status to narcotic agent; Z88.8 Allergy status to other drugs, medicaments and biological substances
CPT/HCPCS: 36415; 71045; 74176; 80048; 80053; 80069; 82040; 82306; 82728; 83540; 83550; 83735; 83880; 83970; 84100; 84484; 84550; 85025; 85520; 90935; 93005; 96374; G0378; J1644

== ENCOUNTER 2020-10-18 10:02 | Emergency (ER) | payer MEDICARE, BC ==
[~2020-10-18] VITALS: Ht 152.4 cm; Wt 69.0 kg
[~2020-10-18 10:02] MED LIST changes: +LOSA25TA25 PO
--- NOTE | 2020-10-18 10:11 | NUR ---
EKG DONE IN TRIAGE.
--- NOTE | 2020-10-18 10:49 | NUR ---
TASK RN NOTE: PT C/O CP SINCE YESTERDAY BEFORE DIALYSIS, WORSE WITH DEEP BREATHS. PT ALSO REPORTS COUGH STARTING YESTERDAY. PT BELIEVED THAT CP WAS DUE TO NEEDING DIALYSIS, BUT DID NOT EXPERIENCE RELIEF FOLLOWING DIALYSIS. PT SPEAKING IN 4 WORD SENTENCES. MAINTAINING SPO2 ON RA.
[2020-10-18 11:03] LABS: BASOPHILS % (AUTO) 1 % (0-1); EOSINOPHILS % (AUTO) 2 % (1-7); LYMPHOCYTES % (AUTO) 18 % (22-44); MEAN CORPUSCULAR HEMOGLOBIN 32.5 pg (27.0-34.8); MEAN CORPUSCULAR HGB CONC 34.1 g/dL (32.4-35.8); MEAN PLATELET VOLUME 8.2 fL (7.4-10.4); MONOCYTES % (AUTO) 11 % (2-9); NEUTROPHILS % (AUTO) 69 % (42-75); PLATELET COUNT 221 x10^3/uL (130-400); RED BLOOD COUNT 2.85 x10^6/uL (3.82-5.3); RED CELL DISTRIBUTION WIDTH 13.2 % (9.6-15.2)
[2020-10-18 11:16] LABS: ALBUMIN 3.2 g/dL (3.4-5.0); ANION GAP 9 mmol/L (5-15); CALCIUM 8.2 mg/dL (8.5-10.1); CHLORIDE 90 mmol/L (98-107)
[2020-10-18 11:21] LABS: ALANINE AMINOTRANSFERASE 17 U/L (12-78); ALKALINE PHOSPHATASE 140 U/L (45-117); BILIRUBIN,TOTAL 0.5 mg/dL (0.2-1.0); CREATININE 6.02 mg/dL (0.55-1.02); TOTAL PROTEIN 7.2 g/dL (6.4-8.2)
[2020-10-18] MEDS ORDERED: BENZONATATE 100 MG CAPSULE PO ONE (12:30)
[2020-10-18] MEDS ORDERED: DOXYCYCLINE 100 MG in DEXTROSE 5% 250 ML IV SCH (12:30)
[2020-10-18] MEDS ORDERED: BENZONATATE 100 MG CAPSULE ONE ×2 (12:30→13:18)
[2020-10-18] MEDS ORDERED: CLOPIDOGREL 75 MG TABLET ONE (12:44)
[2020-10-18] MEDS ORDERED: ASPIRIN 81 MG TABLET CHEW ONE (12:44)
[2020-10-18] MEDS ORDERED: CLOPIDOGREL 75 MG TABLET PO ONE (13:00)
[2020-10-18] MEDS ORDERED: ASPIRIN 81 MG TABLET CHEW PO ONE (13:00)
[2020-10-18] MEDS ORDERED: DOXYCYCLINE 100MG TABLET ONE (13:18)
--- NOTE | 2020-10-18 13:19 | NUR ---
MEDICATED PER EMAR (INCLUDING ABX) AFTER CONFIRMATION THAT BLOOD CULTURES DRAWN
[2020-10-18] MEDS ORDERED: DOXYCYCLINE 100MG TABLET PO ONE (13:30)
--- NOTE | 2020-10-18 13:45 | NUR ---
LAB AT BEDSIDE FOR REPEAT TROPONIN
--- NOTE | 2020-10-18 14:27 | NUR ---
LAB CALLED TO COMMUNICATE CRITICAL TROPONIN OF 1.01-ERP MADE AWARE
[2020-10-18 15:29] VITALS: BP 155/55
--- NOTE | 2020-10-18 15:35 | NUR ---
PT WAITING FOR RIDE IN LOBBY WITH O2 TANK. NAD NOTED.
== END 2020-10-18 16:03 | disposition home or self-care (01) ==
LOC: ED 11:54
DX: J18.9 Pneumonia, unspecified organism (principal); Z20.822 Contact with and (suspected) exposure to COVID-19; Z87.891 Personal history of nicotine dependence; I50.9 Heart failure, unspecified
CPT/HCPCS: 36415; 71045; 80053; 82962; 84145; 84484; 85025; 87040; 93005; 99285; U0003; U0005; J7060

== ENCOUNTER 2020-10-31 08:51 | Observation (INO) | payer MEDICARE, BC ==
[~2020-10-31] VITALS: Ht 152.4 cm; Wt 71.0 kg
--- NOTE | 2020-10-31 09:35 | NUR ---
TO ROOM FROM LOBBY. NAD.
[2020-10-31 10:03] LABS: BASOPHILS % (AUTO) 1 % (0-1); EOSINOPHILS % (AUTO) 1 % (1-7); LYMPHOCYTES % (AUTO) 10 % (22-44); MEAN CORPUSCULAR HGB CONC 34.6 g/dL (32.4-35.8); MEAN PLATELET VOLUME 8.7 fL (7.4-10.4); MONOCYTES % (AUTO) 7 % (2-9); NEUTROPHILS % (AUTO) 82 % (42-75); PLATELET COUNT 187 x10^3/uL (130-400); RED BLOOD COUNT 2.94 x10^6/uL (3.82-5.3); RED CELL DISTRIBUTION WIDTH 13.6 % (9.6-15.2)
[2020-10-31 10:15] LABS: ANION GAP 13 mmol/L (5-15); CALCIUM 9.2 mg/dL (8.5-10.1); CHLORIDE 88 mmol/L (98-107)
[2020-10-31 10:20] LABS: ALANINE AMINOTRANSFERASE 19 U/L (12-78); ALKALINE PHOSPHATASE 119 U/L (45-117); BILIRUBIN,TOTAL 0.9 mg/dL (0.2-1.0); CREATININE 3.61 mg/dL (0.55-1.02); TOTAL PROTEIN 8.1 g/dL (6.4-8.2)
--- NOTE | 2020-10-31 10:28 | NUR ---
PT C/O DIFFICULTY BREATHING AND INTERMITTENT CHEST PAIN A&O X4 RESPIRATIONS LABORED O2 SAT ABOVE 95%. PT CONNECTED TO ALL MONITORS. PT ON 3L O2 VIA NC. MD AWARE OF CHEST PAIN, ORDERS FOR ASPIRIN AND TROPONIN RECEIVED.
[2020-10-31] MEDS ORDERED: ASPIRIN 81 MG TABLET CHEW PO ONE (10:30)
[2020-10-31] MEDS ORDERED: SODIUM CHLORIDE FLUSH 10ML SYR IVF ONE (11:00)
[2020-10-31 11:21] LABS: TROPONIN I 0.052 ng/mL (0.000-0.045)
[2020-10-31] MEDS ORDERED: OMNIPAQUE 350 MG/ML, 75ML BOTTLE ONE (11:42)
--- NOTE | 2020-10-31 12:11 | NUR ---
VSS, PT RESTING COMFORTABLY ON GURNEY. PT HAS NO NEEDS AT THIS TIME.
[2020-10-31] MEDS ORDERED: ONDANSETRON ODT 4 MG PO PRN (12:30)
[2020-10-31] MEDS ORDERED: NITROGLYCERIN 0.4 MG/SPRAY SL PRN (12:30)
[2020-10-31] MEDS ORDERED: MELATONIN 5 MG TABLET PO PRN (12:30)
[2020-10-31] MEDS ORDERED: POTASSIUM CHLORIDE 20 MEQ TAB.ER.PRT PO ONE (12:30)
[2020-10-31] MEDS ORDERED: NITROGLYCERIN 0.4 MG BOTTLE (25 TABS) SL PRN (12:30)
[2020-10-31] MEDS ORDERED: ACETAMINOPHEN 325 MG TABLET PO PRN (12:30)
[2020-10-31] MEDS ORDERED: ENALAPRILAT 1.25 MG/ML, 2ML IVPush PRN (12:30)
[2020-10-31] MEDS ORDERED: ONDANSETRON 2MG/ML, 2ML IVPush PRN (12:30)
[2020-10-31] MEDS ORDERED: ASPIRIN 81 MG TABLET CHEW ONE (12:39)
--- NOTE | 2020-10-31 12:46 | NUR ---
MEDICATED PT PER ORDERS. REPOSITIONED PT FOR COMFORT. PT RESTING ON GURNEY.
[2020-10-31 13:03] LABS: TROPONIN I 0.053 ng/mL (0.000-0.045)
[2020-10-31] MEDS ORDERED: HEPARIN 5,000 UNITS/ML, 1ML ONE (13:48)
[2020-10-31] MEDS ORDERED: POTASSIUM CHLORIDE 20 MEQ TAB.ER.PRT ONE (13:48)
[2020-10-31] MEDS: HEPARIN 5,000 UNITS/ML, 1ML SQ SCH ×2 (14:00→21:11)
--- NOTE | 2020-10-31 14:05 | NUR ---
PT SITTING ON EDGE OF BED, MEDICATED PER ORDERS. ASSISTED PT TO LAYING POSITION. PT HAS NO NEEDS AT THIS TIME.
--- NOTE | 2020-10-31 14:37 | NUR ---
PT STATES HER CHEST PAIN/DISCOMFORT HAS RESOLVED AFTER THE ASPIRIN.
[2020-10-31] MEDS ORDERED: ERGOCALCIFEROL 50,000 UNIT CAPSULE PO SCH (15:00)
[2020-10-31] MEDS ORDERED: ROPINIROLE 0.25MG TABLET PO PRN (15:00)
--- NOTE | 2020-10-31 16:08 | NUR ---
PT RESTING COMFORTABLY ON GURNEY. VSS, PT STATES SHE WANTS TO EAT.
--- NOTE | 2020-10-31 17:00 | NUR ---
PRECEPTOR RN NOTE: PT RESTING ON GURNEY, A&O, RESPS EVEN AND UNLABORED, NSR ON ENGINEER OPERATIONS AND MAINTENANCE WITH NO ECTOPY. PT DENIES CHEST PAIN. REPORT HAS BEEN CALLED TO RECEIVING CARDIAC SENIOR STAFF SPECIALIZED EMPLOYMENT BY FACILITIES ADMINISTRATOR BRI. PT AWAITING TRANSPORT TO CARDIAC TELEMETRY.
[2020-10-31] MEDS ORDERED: PROZAC PO (17:13)
--- NOTE | 2020-10-31 18:02 | NUR ---
PT WAS DIALYZED TODAY PRIOR TO ARRIVAL, YARDER NEVAEH NOTIFIED. RN STATES SHE WILL INFORM OFFAL TRIMMER AND CANCEL DIALYSIS.
--- NOTE | 2020-10-31 18:07 | NUR ---
MED REC COMPLETED BY TOAN SINGER, RECEIVING TOAN RUIZ NOTIFIED THAT DIALYSIS IS CANCELLED TODAY AND MED REC REQUIRES MD REVIEW. PT TRANSPORTED TO CARDIAC TELE ROOM 515, PT A&O, RESPS EVEN AND UNLABORED, NADN AT TRANSPORT.
[2020-10-31 19:04] LABS: TROPONIN I 0.044 ng/mL (0.000-0.045)
[2020-10-31] MEDS ORDERED: ATORVASTATIN 80 MG TABLET PO SCH (21:00)
[2020-10-31 21:06] VITALS: BP 115/63
[2020-10-31] MEDS: CALCIUM ACETATE 667 MG CAPSULE PO SCH (21:12)
[2020-11-01 01:09] VITALS: BP 122/62
[2020-11-01] MEDS: HEPARIN 5,000 UNITS/ML, 1ML SQ SCH (04:48)
[2020-11-01 06:19] LABS: BASOPHILS % (AUTO) 1 % (0-1); EOSINOPHILS % (AUTO) 2 % (1-7); LYMPHOCYTES % (AUTO) 20 % (22-44); MEAN CORPUSCULAR HEMOGLOBIN 33.6 pg (27.0-34.8); MEAN PLATELET VOLUME 9.1 fL (7.4-10.4); MONOCYTES % (AUTO) 13 % (2-9); NEUTROPHILS % (AUTO) 65 % (42-75); PLATELET COUNT 178 x10^3/uL (130-400); RED BLOOD COUNT 2.73 x10^6/uL (3.82-5.3); RED CELL DISTRIBUTION WIDTH 13.6 % (9.6-15.2)
[2020-11-01 06:26] LABS: ANION GAP 10 mmol/L (5-15); CALCIUM 8.7 mg/dL (8.5-10.1); CHLORIDE 92 mmol/L (98-107)
[2020-11-01 06:27] LABS: CREATININE 6.07 mg/dL (0.55-1.02)
[2020-11-01] MEDS ORDERED: GUAI5SYR PO (06:56)
[2020-11-01] MEDS ORDERED: GUAIFENESIN 100 MG/5 ML, 10ML UDC PO SCH (07:00)
[2020-11-01 07:01] VITALS: BP 115/61
[2020-11-01] MEDS: CALCIUM ACETATE 667 MG CAPSULE PO SCH (07:51)
[2020-11-01] MEDS ORDERED: ASPIRIN 81 MG TABLET EC PO SCH (09:00)
[2020-11-01] MEDS ORDERED: CLOPIDOGREL 75 MG TABLET PO SCH (09:00)
== END 2020-11-01 11:49 | disposition home or self-care (01) ==
LOC: ED 12:07 → EDIP 12:17 → INTOOBSV 12:17 → SUATTDRO 12:23 → 5SO 15:51
PROVIDERS: ADMIT Hospitalist; ATTEND Hospitalist
DX: R07.89 Other chest pain (principal); I25.5 Ischemic cardiomyopathy; J96.10 Chronic respiratory failure, unspecified whether with hypoxia or hypercapnia; I25.10 Atherosclerotic heart disease of native coronary artery without angina pectoris; I13.2 Hypertensive heart and chronic kidney disease with heart failure and with stage 5 chronic kidney disease, or end stage renal disease; E11.22 Type 2 diabetes mellitus with diabetic chronic kidney disease; I50.9 Heart failure, unspecified; N18.6 End stage renal disease; D63.1 Anemia in chronic kidney disease; E11.65 Type 2 diabetes mellitus with hyperglycemia; I95.3 Hypotension of hemodialysis; E78.5 Hyperlipidemia, unspecified; I34.0 Nonrheumatic mitral (valve) insufficiency; K21.9 Gastro-esophageal reflux disease without esophagitis; E87.6 Hypokalemia; E87.1 Hypo-osmolality and hyponatremia; I25.2 Old myocardial infarction; K44.9 Diaphragmatic hernia without obstruction or gangrene; N28.89 Other specified disorders of kidney and ureter; E11.40 Type 2 diabetes mellitus with diabetic neuropathy, unspecified; M89.9 Disorder of bone, unspecified; M48.54XA Collapsed vertebra, not elsewhere classified, thoracic region, initial encounter for fracture; Z87.891 Personal history of nicotine dependence; Z79.82 Long term (current) use of aspirin; Z79.899 Other long term (current) drug therapy; Z90.710 Acquired absence of both cervix and uterus; Z99.2 Dependence on renal dialysis
CPT/HCPCS: 36415; 71045; 71275; 80048; 80053; 82962; 84484; 85025; 93005; 96372; 99285; G0378; J1644; Q9967